=== PATIENT | male | born 1940 | race Caucasian/White ===

== ENCOUNTER 2019-05-17 15:46 | Inpatient (IN) | payer MEDICARE, BC ==
[~2019-05-17] VITALS: Ht 170.2 cm; Wt 76.4 kg
[2019-05-17] MEDS ORDERED: fentaNYL PF VIAL 100 MCG/2 ML VIAL IV ONE ×2 (17:45→19:30)
--- NOTE | 2019-05-17 17:48 | PHYS DOC ---
Past Medical History Past Medical History: Diabetes-Type II, GERD, Hypertension Past Surgical History: Hip Replacement Additional Past Surgical Histo: cardiac stents Alcohol Use: Rarely Drug Use: None Adult General Chief Complaint Chief Complaint: MECHANICAL FALL HPI HPI Patient is a 78 year old Male who presents with was at [employer] today when he slipped on the floor and fell backward. Patient complains of mid to lower back pain at a 10 out of 10. Patient states he also hit the back of his head. Patient is not on blood thinners. Patient denies LOC, vomiting, dizziness, visual changes, headache, numbness or tingling, soa, chest pain. Review of Systems Review of Systems Musculoskeletal: low back pain or joint pain [] Neurologic: hit back of headache, denies focal weakness or sensory changes [] All other systems were reviewed and found to be within normal limits, except as documented in this note. Current Medications Current Medications Current Medications Medications (Trade) Dose Ordered Sig/Alejandra Start Time Stop Time Status Last Admin Dose Admin Fentanyl Citrate (Fentanyl 2ml Vial) 50 mcg 1X ONCE 05/17/19 19:30 05/17/19 19:31 DC 05/17/19 19:28 50 MCG Allergies Allergies Allergies Coded Allergies Type Severity Reaction Last Updated Verified morphine Adverse Reaction Unknown 05/17/19 Yes Physical Exam Physical Exam Constitutional: Well developed, well nourished, no acute distress, non-toxic appearance. [] HENT: Normocephalic, atraumatic, bilateral external ears normal, oropharynx moist, no oral exudates, nose normal. [] Eyes: PERRLA, EOMI, conjunctiva normal, no discharge. [] Neck: Normal range of motion, no tenderness, supple, no stridor. [] Skin: Warm, dry, no erythema, no rash. [] Back: Mid to lower paraspinal tenderness, no CVA tenderness. [] Extremities: No tenderness, no cyanosis, no clubbing, ROM intact, no edema. [] Neurologic: Alert and oriented X 3, normal motor function, normal sensory function, no focal deficits noted. [] Psychologic: Affect normal, judgement normal, mood normal. [] Current Patient Data Vital Signs Vital Signs Date Time Temp Pulse Resp B/P (MAP) Pulse Ox O2 Delivery O2 Flow Rate FiO2 05/17/19 19:28 18 96 Room Air 05/17/19 18:15 64 05/17/19 16:40 98.2 206/94 (131) 98.2 Lab Values Laboratory Tests Test 05/17/19 17:50 05/17/19 19:00 White Blood Count 8.4 x10^3/uL (4.0-11.0) Red Blood Count 4.83 x10^6/uL (4.30-5.70) Hemoglobin 15.4 g/dL (13.0-17.5) Hematocrit 43.4 % (39.0-53.0) Mean Corpuscular Volume 90 fL (79-100) Mean Corpuscular Hemoglobin 32 pg (25-35) Mean Corpuscular Hemoglobin Concent 36 g/dL (31-37) Red Cell Distribution Width 13.2 % (11.5-14.5) Platelet Count 177 x10^3/uL (140-400) Neutrophils (%) (Auto) 80 % (31-73) H Lymphocytes (%) (Auto) 11 % (24-48) L Monocytes (%) (Auto) 7 % (0-9) Eosinophils (%) (Auto) 1 % (0-3) Basophils (%) (Auto) 1 % (0-3) Neutrophils # (Auto) 6.7 x10^3/uL (1.8-7.7) Lymphocytes # (Auto) 0.9 x10^3/uL (1.0-4.8) L Monocytes # (Auto) 0.6 x10^3/uL (0.0-1.1) Eosinophils # (Auto) 0.1 x10^3/uL (0.0-0.7) Basophils # (Auto) 0.0 x10^3/uL (0.0-0.2) Sodium Level 134 mmol/L (136-145) L Potassium Level 5.0 mmol/L (3.5-5.1) Chloride Level 96 mmol/L (98-107) L Carbon Dioxide Level 28 mmol/L (21-32) Anion Gap 10 (6-14) Blood Urea Nitrogen 44 mg/dL (8-26) H Creatinine 1.8 mg/dL (0.7-1.3) H Estimated GFR (Cockcroft-Gault) 36.6 BUN/Creatinine Ratio 24 (6-20) H Glucose Level 354 mg/dL (70-99) H Calcium Level 9.9 mg/dL (8.5-10.1) Total Bilirubin 0.5 mg/dL (0.2-1.0) Aspartate Amino Transferase (AST) 54 U/L (15-37) H Alanine Aminotransferase (ALT) 40 U/L (16-63) Alkaline Phosphatase 124 U/L (46-116) H Troponin I Quantitative 0.113 ng/mL (0.000-0.055) Total Protein 7.4 g/dL (6.4-8.2) Albumin 3.8 g/dL (3.4-5.0) Albumin/Globulin Ratio 1.1 (1.0-1.7) Urine Collection Type Unknown Urine Color Yellow Urine Clarity Clear Urine pH 5.0 Urine Specific Loving 1.020 Urine Protein 100 mg/dL (NEG-TRACE) Urine Glucose (UA) >=1000 mg/dL (NEG) Urine Ketones (Stick) Negative mg/dL (NEG) Urine Blood Negative (NEG) Urine Nitrite Negative (NEG) Urine Bilirubin Negative (NEG) Urine Urobilinogen Dipstick 0.2 mg/dL (0.2 mg/dL) Urine Leukocyte Esterase Negative (NEG) Urine RBC 0 /HPF (0-2) Urine WBC Rare /HPF (0-4) Urine Squamous Epithelial Cells Few /LPF Urine Bacteria 0 /HPF (0-FEW) Laboratory Tests 05/17/19 17:50 Laboratory Tests 05/17/19 17:50 EKG EKG Sinus Rhythm and no STEMI[] Interpretation Time: [address] Ramey Radiology/Procedures Radiology/Procedures [] Impressions: [facility] [address] [place] [address] IMAGING REPORT Signed PATIENT: JUAN J PRATHER ACCOUNT: [id number] : 1940 LOCATION: ER AGE: 78 SEX: M EXAM STATUS: REG ER ORD. PHYSICIAN: NELY VAUGHN APRN REASON: FALL, HEAD AND BACK PAIN, POOR HISTORIAN PROCEDURE: CT HEAD WO CONTRAST EXAM: CT HEAD WITHOUT IV CONTRAST CLINICAL HISTORY: COMPARISON: None. TECHNIQUE: Routine CT of the head without contrast. Soft tissues and bone windows were reviewed. PQRS compliance statement - One or more of the following individualized dose reduction techniques were utilized for this study: 1. Automated exposure control 2. Adjustment of the mA and/or kV according to patient size 3. Use of iterative reconstruction technique FINDINGS: There is no evidence of hemorrhage, mass or extra-axial fluid collection. Periventricular and deep white matter hypoattenuation likely changes of chronic small vessel disease. There is no mass effect or shift of the intracranial structures. The ventricles, basilar There is prominence of the ventricles and sulci bilaterally consistent with generalized atrophy. and cortical sulci are normal in size and configuration for the patients stated age. Bilateral chronic appearing cerebellar infarcts. Changes of right mastoidectomy with temporal auditory devices seen. There is normal aeration of the visualized paranasal sinuses and mastoid air cells. The visualized portions of the orbits are normal. IMPRESSION: 1. No evidence for acute intracranial process. 2. Chronic appearing bilateral cerebellar infarcts. 3. Changes of generalized cerebral atrophy. 4. White matter hypoattenuation likely that of chronic small vessel disease. Exam: CT thoracic spine CLINICAL HISTORY: FALL, HEAD AND BACK PAIN, POOR HISTORIAN COMPARISON: None available. TECHNIQUE: Helical CT of the thoracic spine was performed and axial, coronal and sagittal reformatted images were generated. PQRS compliance statement - One or more of the following individualized dose reduction techniques were utilized for this study: 1. Automated exposure control 2. Adjustment of the mA and/or kV according to patient size 3. Use of iterative reconstruction technique FINDINGS: There is a a transverse fracture through the T12 vertebral body without significant height loss. Fracture plane extends into the T11-12 disc space. Although the fracture extends into the posterior endplate there is no significant osseous retropulsion. The posterior elements are not involved. 4 mm lung nodule in the right lower lobe (series 3 image 56) aortic calcifications are seen. No evidence for high-grade central canal stenosis. No spondylolisthesis. IMPRESSION: 1. Transverse fracture through the T12 vertebral body without significant height loss. EXAM: CT lumbar spine without IV contrast CLINICAL HISTORY:FALL, HEAD AND BACK PAIN, COMPARISON: None available. TECHNIQUE: Helical CT was performed through the lumbar spine. Axial, coronal and sagittal reformatted images were generated. PQRS compliance statement - One or more of the following individualized dose reduction techniques were utilized for this study: 1. Automated exposure control 2. Adjustment of the mA and/or kV according to patient size 3. Use of iterative reconstruction technique FINDINGS: Lumbar vertebral heights are preserved. Severe L5-S1 disc height loss. No evidence for lumbar fracture. T12-L1: No significant central canal stenosis or neural foraminal narrowing. L1-2: No significant central canal stenosis or neural foraminal narrowing. L2-3: Generalized disc bulge results in mild flattening of the central canal without significant neural foraminal narrowing. L3-4: Generalized disc bulge with ligamentum flavum hypertrophy and facet degenerative changes results in mild central canal stenosis and mild bilateral neural foraminal narrowing. L4-5: Generalized disc bulge with ligament flavum hypertrophy and facet degenerative changes results in moderate to severe central canal stenosis and mild left and moderate right neural foraminal narrowing. L5-S1: Generalized disc bulge results in mild central canal stenosis without significant neural foraminal narrowing. Vascular calcifications are seen. IMPRESSION: 1. Multilevel spondylosis as above 2. Negative acute lumbar fracture or subluxation. 3. T12 vertebral body fracture as above. Electronically signed by: Maurizio Vidal MD (05/17/2019 6:38 PM) [facility] DICTATED and SIGNED BY: MAURIZIO VIDAL MD DATE: 05/17/19 183 Course & Med Decision Making Course & Med Decision Making Patient is a 78 year old Male who presents with was at [facility] today when he slipped on the floor and fell backward. Patient complains of mid to lower back pain at a 10 out of 10. Patient states he also hit the back of his head. Patient is not on blood thinners. Patient denies LOC, vomiting, dizziness, visual changes, headache, numbness or tingling, soa, chest pain, weaknesses. There is no tenderness to the patients head, bumps, bruising, laceration, abrasion, redness. With palpation to the patients back there is no focal bony spinal tenderness, bruising, deformity. Patient has right and left paraspinal mid to lower back pain especially with movement. Patient is able to move in bed without complication. Patient walked into the hospital and stood up at bedside to use the urinal. Patient has control over his bowel and bladder. Skin is pink warm and dry. PERRLA. Patient denies any joint or extremity pain. Patient, his family are very poor historians. He did not have a list of medications. Patient's troponin is elevated at 0.113, BUN 44, creatinine 1.8. When I went back into speak to the family and patient about this the son said "oh yeah he did have a heart attack in the past". The son did state that his mother and the patient just moved here from [facility]. The son then stated that his sister would no more information than he would and called the sister. The sister then emailed the son a list of medications and stated that the dad did have a kidney internal list in [place] but does not know anything further than that. Family does not think he is on dialysis. Patient is on Levemir, Lantus, NovoLog, Pioglitazone, metformin, amlodipine, carvedilol, lisinopril, fenofibrate, omeprazole, furosemide, gabapentin, memantine. EKG shows sinus rhythm and no STEMI and was read by Dr. Ramey. Patient be admitted for elevated troponin level and will consult cardiology and nephrology. I did discuss this patient with Dr Ramey. CT's show: 1. Transverse fracture through the T12 vertebral body without significant height loss. 1. Multilevel spondylosis as above 2. Negative acute lumbar fracture or subluxation. 3. T12 vertebral body fracture as above. 1. No evidence for acute intracranial process. 2. Chronic appearing bilateral cerebellar infarcts. 3. Changes of generalized cerebral atrophy. 4. White matter hypoattenuation likely that of chronic small vessel disease. I have spoken to Dr Espitia nurse practitioner Emily. She and Dr Espitia looked at the CT. They state that the patient will need a MRI tomorrow and they will order a back brace for the patient tonight and the patient must remain on bedrest. Patient admitted by Dr Solis. Shawnee Disclaimer Shawnee Disclaimer This electronic medical record was generated, in whole or in part, using a voice recognition dictation system. The HEART Score for CP Pts HEART Score for Chest Pain: HEART Score for Chest Pain Response (Comments) Value History Slighlty/Non-Suspicious 0 Age > 65 2 Risk Factors 1 or 2 Risk Factors 1 Troponin >1-<3x Normal Limit 1 Total 4 Risk Factors: Risk Factors: DM, Current or recent (<one month) smoker, HTN, HLP, family history of CAD, obesity. Risk Scores: Score 0 - 3: 2.5% MACE over next 6 weeks - Discharge Home Score 4 - 6: 20.3% MACE over next 6 weeks - Admit for Clinical Observation Score 7 - 10: 72.7% MACE over next 6 weeks - Early Invasive Strategies Departure Departure Impression: Primary Impression: T12 vertebral fracture Additional Impression: Elevated troponin Disposition: ADMITTED INPATIENT Admitting Physician: HIMS Condition: STABLE Referrals: NO PCP (PCP) Problem Qualifiers Primary Impression: T12 vertebral fracture Encounter type: initial encounter Fracture type: closed Fracture morphology: other fracture Qualified Codes: S22.088A - Other fracture of t11-T12 vertebra, initial encounter for closed fracture NELY VAUGHN APRN May 17, 2019 17:48
[2019-05-17 17:58] LABS: BASO % 1 % (0-3); EOS # 0.1 x10^3/uL (0.0-0.7); EOS % 1 % (0-3); HEMATOCRIT 43.4 % (39.0-53.0); HEMOGLOBIN 15.4 g/dL (13.0-17.5); LYMPH # 0.9 x10^3/uL (1.0-4.8); LYMPH % 11 % (24-48); MEAN CORPUSCULAR HEMOGLOBIN 32 pg (25-35); MEAN CORPUSCULAR HGB CONC 36 g/dL (31-37); MEAN CORPUSCULAR VOLUME 90 fL (79-100); MONO # 0.6 x10^3/uL (0.0-1.1); MONO % 7 % (0-9); NEUT # 6.7 x10^3/uL (1.8-7.7); NEUT % 80 % (31-73); PLATELET COUNT 177 x10^3/uL (140-400); RED BLOOD COUNT 4.83 x10^6/uL (4.30-5.70); RED CELL DISTRIBUTION WIDTH 13.2 % (11.5-14.5); WHITE BLOOD COUNT 8.4 x10^3/uL (4.0-11.0)
[2019-05-17 18:07] LABS: CALCIUM 9.9 mg/dL (8.5-10.1); CREATININE 1.8 mg/dL (0.7-1.3); GFR 36.6
[2019-05-17 18:12] LABS: ALBUMIN 3.8 g/dL (3.4-5.0); ALBUMIN/GLOBULIN RATIO 1.1 (1.0-1.7); TOTAL BILIRUBIN 0.5 mg/dL (0.2-1.0); TOTAL PROTEIN 7.4 g/dL (6.4-8.2)
--- NOTE | 2019-05-17 18:41 | RAD ---
EXAM: CT HEAD WITHOUT IV CONTRAST CLINICAL HISTORY: COMPARISON: None. TECHNIQUE: Routine CT of the head without contrast. Soft tissues and bone windows were reviewed. PQRS compliance statement - One or more of the following individualized dose reduction techniques were utilized for this study: 1. Automated exposure control 2. Adjustment of the mA and/or kV according to patient size 3. Use of iterative reconstruction technique FINDINGS: There is no evidence of hemorrhage, mass or extra-axial fluid collection. Periventricular and deep white matter hypoattenuation likely changes of chronic small vessel disease. There is no mass effect or shift of the intracranial structures. The ventricles, basilar There is prominence of the ventricles and sulci bilaterally consistent with generalized atrophy. and cortical sulci are normal in size and configuration for the patients stated age. Bilateral chronic appearing cerebellar infarcts. Changes of right mastoidectomy with temporal auditory devices seen. There is normal aeration of the visualized paranasal sinuses and mastoid air cells. The visualized portions of the orbits are normal. IMPRESSION: 1. No evidence for acute intracranial process. 2. Chronic appearing bilateral cerebellar infarcts. 3. Changes of generalized cerebral atrophy. 4. White matter hypoattenuation likely that of chronic small vessel disease. Exam: CT thoracic spine CLINICAL HISTORY: FALL, HEAD AND BACK PAIN, POOR HISTORIAN COMPARISON: None available. TECHNIQUE: Helical CT of the thoracic spine was performed and axial, coronal and sagittal reformatted images were generated. PQRS compliance statement - One or more of the following individualized dose reduction techniques were utilized for this study: 1. Automated exposure control 2. Adjustment of the mA and/or kV according to patient size 3. Use of iterative reconstruction technique FINDINGS: There is a a transverse fracture through the T12 vertebral body without significant height loss. Fracture plane extends into the T11-12 disc space. Although the fracture extends into the posterior endplate there is no significant osseous retropulsion. The posterior elements are not involved. 4 mm lung nodule in the right lower lobe (series 3 image 56) aortic calcifications are seen. No evidence for high-grade central canal stenosis. No spondylolisthesis. IMPRESSION: 1. Transverse fracture through the T12 vertebral body without significant height loss. EXAM: CT lumbar spine without IV contrast CLINICAL HISTORY:FALL, HEAD AND BACK PAIN, COMPARISON: None available. TECHNIQUE: Helical CT was performed through the lumbar spine. Axial, coronal and sagittal reformatted images were generated. PQRS compliance statement - One or more of the following individualized dose reduction techniques were utilized for this study: 1. Automated exposure control 2. Adjustment of the mA and/or kV according to patient size 3. Use of iterative reconstruction technique FINDINGS: Lumbar vertebral heights are preserved. Severe L5-S1 disc height loss. No evidence for lumbar fracture. T12-L1: No significant central canal stenosis or neural foraminal narrowing. L1-2: No significant central canal stenosis or neural foraminal narrowing. L2-3: Generalized disc bulge results in mild flattening of the central canal without significant neural foraminal narrowing. L3-4: Generalized disc bulge with ligamentum flavum hypertrophy and facet degenerative changes results in mild central canal stenosis and mild bilateral neural foraminal narrowing. L4-5: Generalized disc bulge with ligament flavum hypertrophy and facet degenerative changes results in moderate to severe central canal stenosis and mild left and moderate right neural foraminal narrowing. L5-S1: Generalized disc bulge results in mild central canal stenosis without significant neural foraminal narrowing. Vascular calcifications are seen. IMPRESSION: 1. Multilevel spondylosis as above 2. Negative acute lumbar fracture or subluxation. 3. T12 vertebral body fracture as above. Electronically signed by: Maurizio Johnson MD (05/17/2019 6:38 PM) [facility]
[2019-05-17 19:17] LABS: BILIRUBIN,URINE NEGATIVE (NEG); CLARITY,URINE CLEAR; COLOR,URINE YELLOW; NITRITE,URINE NEGATIVE (NEG); PROTEIN,URINE 100 mg/dL (NEG-TRACE); UROBILINOGEN,URINE 0.2 mg/dL (0.2 mg/dL)
[2019-05-17 19:24] LABS: BACTERIA,URINE 0 /HPF (0-FEW); RBC,URINE 0 /HPF (0-2); SQUAMOUS EPITHELIAL CELL,UR FEW /LPF; WBC,URINE RARE /HPF (0-4)
--- NOTE | 2019-05-17 19:29 | RAD ---
Chest radiograph 05/17/2019 6:55 PM INDICATION: Fall with elevated troponin COMPARISON: None available TECHNIQUE: Portable upright frontal view of the chest is provided. FINDINGS: The cardiomediastinal silhouette is borderline enlarged. Cardiac monitoring device is present. There are no pleural effusions. There is no pulmonary vascular congestion. There is no pneumothorax. The lungs are clear. Elevation the right hemidiaphragm is nonspecific. Right clavicular hardware is present. IMPRESSION: No acute cardiopulmonary process. There is nonspecific elevation right hemidiaphragm. Electronically signed by: Cathie Hassan MD (05/17/2019 7:26 PM) [facility]
[2019-05-17] MEDS ORDERED: ONDANSETRON PF 4 MG/2 ML VIAL. IV PRN (20:00)
[2019-05-17 21:15] VITALS: BP 175/89
[2019-05-17] MEDS ORDERED: AMLO5TAB10 PO (21:35)
[2019-05-17] MEDS ORDERED: CARV25TA2 PO (21:35)
[2019-05-17] MEDS ORDERED: NIAC500T PO (21:35)
[2019-05-17] MEDS ORDERED: OMEP20CA10 PO (21:35)
[2019-05-17] MEDS ORDERED: OMEG1CAP43 PO (21:35)
[2019-05-17] MEDS ORDERED: FENO145T30 PO (21:35)
[2019-05-17] MEDS ORDERED: INSU100C4 SQ (21:35)
[2019-05-17] MEDS ORDERED: FURO20TA3 PO (21:35)
[2019-05-17] MEDS ORDERED: LISI10TA2 PO (21:35)
[2019-05-17] MEDS ORDERED: CHOL10003 PO (21:35)
[2019-05-17] MEDS ORDERED: MEMA10TA PO (21:35)
[2019-05-17] MEDS ORDERED: MULT1TAB52 PO (21:35)
[2019-05-17] MEDS ORDERED: METF10007 PO (21:35)
[2019-05-17] MEDS ORDERED: INSU100V8 SQ (21:35)
[2019-05-17] MEDS ORDERED: PIOG30TA41 PO (21:35)
[2019-05-17] MEDS ORDERED: ASPI325T8 PO (21:35)
[2019-05-17] MEDS ORDERED: GABA-585 PO (21:35)
[2019-05-17] MEDS ORDERED: IV DEXTROSE 5% 250 ML BAG. IV PRN (21:45)
[2019-05-17] MEDS ORDERED: DEXTROSE 50% 25 GM / 50ML DISP.SYRIN. IV PRN (21:45)
[2019-05-17] MEDS ORDERED: HYDROmorphone 2 MG/ML VIAL IV PRN (21:45)
[2019-05-17] MEDS ORDERED: GABAPENTIN 100 MG CAPSULE. PO SCH (22:00)
[2019-05-17] MEDS ORDERED: MEMANTINE 10 MG TABLET. PO ONE (22:00)
[2019-05-17] MEDS ORDERED: INSULIN LISPRO 300 UNITS/3 ML VIAL. SQ ONE (22:00)
[2019-05-17] MEDS ORDERED: GABAPENTIN 300 MG CAPSULE. PO ONE (22:00)
[2019-05-17] MEDS: GABAPENTIN 300 MG CAPSULE. PO SCH (22:14)
[2019-05-17] MEDS: MEMANTINE 10 MG TABLET. PO SCH (22:17)
[2019-05-17 22:50] VITALS: BP 166/79
[2019-05-18 03:00] VITALS: BP 152/69
[2019-05-18 03:08] LABS: BASO % 0 % (0-3); EOS # 0.1 x10^3/uL (0.0-0.7); EOS % 1 % (0-3); HEMATOCRIT 38.8 % (39.0-53.0); HEMOGLOBIN 13.5 g/dL (13.0-17.5); LYMPH # 1.1 x10^3/uL (1.0-4.8); LYMPH % 15 % (24-48); MEAN CORPUSCULAR HEMOGLOBIN 31 pg (25-35); MEAN CORPUSCULAR HGB CONC 35 g/dL (31-37); MEAN CORPUSCULAR VOLUME 90 fL (79-100); MONO # 0.7 x10^3/uL (0.0-1.1); MONO % 9 % (0-9); NEUT # 5.9 x10^3/uL (1.8-7.7); NEUT % 75 % (31-73); PLATELET COUNT 151 x10^3/uL (140-400); RED BLOOD COUNT 4.31 x10^6/uL (4.30-5.70); RED CELL DISTRIBUTION WIDTH 12.9 % (11.5-14.5); WHITE BLOOD COUNT 7.9 x10^3/uL (4.0-11.0)
[2019-05-18 03:11] LABS: CALCIUM 9.3 mg/dL (8.5-10.1); CREATININE 1.6 mg/dL (0.7-1.3); GFR 41.9; POTASSIUM 4.2 mmol/L (3.5-5.1)
[2019-05-18] MEDS: fentaNYL PF VIAL 100 MCG/2 ML VIAL IV PRN ×2 (06:29→11:10)
[2019-05-18 07:00] VITALS: BP 188/91
[2019-05-18] MEDS ORDERED: INSULIN LISPRO 300 UNITS/3 ML VIAL. SQ SCH (08:00)
--- NOTE | 2019-05-18 08:27 | EKG ---
[facility] [address] [place] [address] Test Date: 2019-05-17 Test Time: 17:36:33 Pat Name: JUAN J PRATHER Department: Room: 208 1 Gender: M Cardio Clinician: LITA : 1940 Requested By: NELY VAUGHN Order Number: [id number] Reading MD: Measurements Intervals [place] Rate: 71 P: 39 VA: 164 QRS: -41 QRSD: 92 T: 71 QT: 382 QTc: 415 Interpretive Statements SINUS RHYTHM ABNORMAL LEFT AXIS DEVIATION R-S TRANSITION ZONE IN V LEADS DISPLACED TO THE LEFT LEFT ANTERIOR FASCICULAR BLOCK CONSIDER LEFT VENTRICULAR HYPERTROPHY QRS(T) CONTOUR ABNORMALITY CONSIDER ANTEROSEPTAL MYOCARDIAL DAMAGE ABNORMAL ECG RI6.01 No previous ECG available for comparison
[2019-05-18] MEDS ORDERED: DEXTROSE 50% 25 GM / 50ML DISP.SYRIN. IV PRN (09:00)
[2019-05-18] MEDS ORDERED: IV DEXTROSE 5% 250 ML BAG. IV PRN (09:00)
--- NOTE | 2019-05-18 09:02 | PDOC1 ---
History and Physical Date of Admission Date of Admission DATE: 05/18/19 TIME: 09:00 Source Source: Chart review, Patient History of Present Illness History of Present Illness Mr. Branch, is a 78 year old Male admitted overnight, yesterday he was at [facility] when he slipped on the floor and fell backward. Patient complained of mid to lower back pain at a 10 out of 10 yesterady, much better today unless he tries to move, then pain worse. . Patient states he also hit the back of his head. Patient is not on blood thin ners. Patient denies LOC, he has no primary care here, he just moved here from [place] to be near his family Social History Smoke: No ALCOHOL: none Drugs: None Current Problem List Problem List Problems Medical Problems: (1) Elevated troponin Status: Acute (2) T12 vertebral fracture Status: Acute Current Medications Current Medications Current Medications Fentanyl Citrate (Fentanyl 2ml Vial) 50 mcg 1X ONCE IV Last administered on 05/17/19at 17:54; Start 05/17/19 at 17:45; Stop 05/17/19 at 17:46; Status DC Fentanyl Citrate (Fentanyl 2ml Vial) 50 mcg 1X ONCE IV Last administered on 05/17/19at 19:28; Start 05/17/19 at 19:30; Stop 05/17/19 at 19:31; Status DC Ondansetron HCl (Zofran) 4 mg PRN Q8HRS PRN IV NAUSEA/VOMITING; Start 05/17/19 at 20:00; Stop 05/18/19 at 19:59 Fentanyl Citrate (Fentanyl 2ml Vial) 50 mcg PRN Q1HR PRN IV PAIN Last administered on 05/18/19at 06:29; Start 05/17/19 at 20:00; Stop 05/18/19 at 19:59 Insulin Human Lispro (HumaLOG) 0-5 UNITS TIDWMEALS SQ ; Start 05/18/19 at 08:00 Dextrose (Dextrose 50%-Water Syringe) 12.5 gm PRN Q15MIN PRN IV SEE COMMENTS; Start 05/17/19 at 21:45 Dextrose 250 ml PRN Q15MIN PRN IV SEE COMMENTS; Start 05/17/19 at 21:45 Hydromorphone HCl (Dilaudid) 1 mg PRN Q4HRS PRN IV PAIN Last administered on 05/18/19at 01:03; Start 05/17/19 at 21:45 Insulin Human Lispro (HumaLOG) 6 units 1X ONCE SQ Last administered on at 22:22; Start 05/17/19 at 22:00; Stop 05/17/19 at 22:01; Status DC Amlodipine Besylate (Norvasc) 5 mg DAILY PO ; Start 05/18/19 at 09:00 Aspirin (Jenifer Aspirin) 325 mg DAILYWBKFT PO ; Start 05/18/19 at 08:00 Vitamin D (Vitamin D3) 1,000 unit DAILY PO ; Start 05/18/19 at 09:00 Furosemide (Lasix) 20 mg DAILY PO ; Start 05/18/19 at 09:00 Gabapentin (Neurontin) 300 mg QHS PO ; Start 05/17/19 at 22:00; Stop 05/17/19 at 21:49; Status DC Lisinopril (Prinivil) 10 mg DAILY PO ; Start 05/18/19 at 09:00 Memantine (Namenda) 10 mg QHS PO Last administered on 05/17/19at 22:22; Start 05/17/19 at 22:00 Niacin (Slo-Niacin) 500 mg DAILY PO ; Start 05/18/19 at 09:00 Carvedilol (Coreg) 25 mg DAILYWBKFT PO ; Start 05/18/19 at 08:00 Insulin Human Lispro (HumaLOG) 10 units DAILY08 SQ ; Start 05/18/19 at 08:00 Metformin HCl (Glucophage) 1,000 mg BIDWMEALS PO ; Start 05/18/19 at 08:00 Multivitamins (Thera M Plus) 1 tab DAILY PO ; Start 05/18/19 at 09:00 Fish Oil (Fish Oil) 3,000 mg DAILY PO ; Start 05/18/19 at 09:00 Pantoprazole Sodium (Protonix) 40 mg DAILYAC PO ; Start 05/18/19 at 07:30 Pioglitazone HCl (Actos) 30 mg DAILY PO ; Start 05/18/19 at 09:00 Gabapentin (Neurontin) 300 mg QHS PO Last administered on 05/17/19at 22:22; Start 05/17/19 at 22:00 Gabapentin (Neurontin) 300 mg 1X ONCE PO ; Start 05/17/19 at 22:00; Stop 05/17/19 at 22:01; Status UNV Memantine (Namenda) 10 mg 1X ONCE PO ; Start 05/17/19 at 22:00; Stop 05/17/19 at 22:01; Status UNV Active Scripts Active Reported Multivitamins (Multivitamin) 1 Each Tablet 1 Tab PO DAILY Aspirin 325 Mg Tablet 1 Tab PO DAILY Niaspan (Niacin) 500 Mg Tab.er.24h 500 Mg PO DAILY Fish Oil 1,400 Mg Softgel ([place]-3/Dha/Epa/Fish Oil) 1 Each Capsule.dr 3 Each PO DAILY Vitamin D3 (Cholecalciferol (Vitamin D3)) 1,000 Unit Tablet 1 Tab PO DAILY Namenda (Memantine Hcl) 10 Mg Tablet 10 Mg PO QHS Gabapentin (Gabapentin) 100 Mg Capsule 300 Mg PO QHS Furosemide 20 Mg Tablet 20 Mg PO DAILY Omeprazole 20 Mg Capsule.dr 20 Mg PO DAILY Fenofibrate (Fenofibrate Nanocrystallized) 145 Mg Tablet 145 Mg PO DAILY Lisinopril 10 Mg Tablet 10 Mg PO DAILY Carvedilol 25 Mg Tablet 25 Mg PO DAILY Amlodipine Besylate 5 Mg Tablet 5 Mg PO DAILY Metformin Hcl 1,000 Mg Tablet 1,000 Mg PO BIDWMEALS Actos (Pioglitazone Hcl) 30 Mg Tablet 30 Mg PO DAILY Novolog (Insulin Aspart) 100 Unit/1 Ml Cartridge 10 Unit SQ DAILY08 Lantus (Insulin Glargine,Hum.rec.anlog) 100 Unit/1 Ml Vial 25-55 Unit SQ DAILY Allergies Allergies: Coded Allergies: morphine (Verified Adverse Reaction, Unknown, 05/17/19) "I get mean" ROS General: No: Chills, Night Sweats, Fatigue, Malaise, Appetite, Other PSYCHOLOGICAL ROS: YES: Sleep disturbances; No: Anxiety, Behavioral Disorder, Concentration difficultie, Decreased libido, Depression, Disorientation, Hallucinations, Hostility, Irritablity, Memory difficulties, Mood Swings, Obsessive thoughts, Other Eyes: No Blurry vision, No Decreased vision, No Double vision, No Dry eyes, No Excessive tearing, No Eye Pain, No Itchy Eyes, No Loss of vision, No Driss tophobia, No Scotomata, No Uses contacts, No Uses glasses, No Other HEENT: YES: Hearing change; No: Heacaches, Visual Changes, Nasal congestion, Nasal discharge, Oral lesions, Sinus pain, Sore Throat, Epistaxis, Sneezing, Snoring, Tinnitus, Vertigo, Vocal changes, Other Cardiovascular: No Chest Pain, No Palpitations, No Orthopnea, No Paroxysmal Noc. Dyspnea, No Edema, No Lt Headedness, No Other Gastrointestinal: No Nausea, No Vomiting, No Abdominal Pain, No Diarrhea, No Constipation, No Melena, No Hematochezia, No Other Genitourinary: No Dysuria, No Frequency, No Incontinence, No Hematuria, No Retention, No Discharge, No Urgency, No Pain, No Flank Pain, No Other, No , No , No , No , No , No , No Musculoskeletal: Yes Joint Stiffness, Yes Joint Swelling, Yes Muscular Weakness , Yes Pain In: (back); No Gait Disturbance, No Joint Pain, No Muscle Pain, No Swelling In:, No Other Neurological: No Behavorial Changes, No Bowel/Bladder ControlChng, No Confusion, No Dizziness, No Gait Disturbance, No Headaches, No Impaired Coord/balance, No Memory Loss, No Numbness/Tingling, No Seizures, No Speech Problems, No Tremors, No Visual Changes, No Weakness, No Other Skin: No Dry Skin, No Eczema, No Hair Changes, No Lumps, No Mole Changes, No Mottling, No Nail Changes, No Pruritus, No Rash, No Skin Lesion Changes, No Other, No Acne Physical Exam General: Alert, Cooperative, No acute distress, Other (a little confused, hard of hearing) HEENT: Atraumatic, PERRLA Extremities: No clubbing, No edema Skin: No breakdown Neuro: Normal speech Psych/Mental Status: Mental status NL, Mood NL Vitals Vitals Vital Signs Date Time Temp Pulse Resp B/P (MAP) Pulse Ox O2 Delivery O2 Flow Rate FiO2 05/18/19 06:29 20 Room Air 05/18/19 03:00 98.1 61 152/69 (96) 95 98.1 Labs Labs Laboratory Tests Test 05/17/19 17:50 05/17/19 19:00 05/17/19 22:30 05/18/19 00:55 White Blood Count 8.4 x10^3/uL (4.0-11.0) 7.9 x10^3/uL (4.0-11.0) Red Blood Count 4.83 x10^6/uL (4.30-5.70) 4.31 x10^6/uL (4.30-5.70) Hemoglobin 15.4 g/dL (13.0-17.5) 13.5 g/dL (13.0-17.5) Hematocrit 43.4 % (39.0-53.0) 38.8 % (39.0-53.0) Mean Corpuscular Volume 90 fL (79-100) 90 fL (79-100) Mean Corpuscular Hemoglobin 32 pg (25-35) 31 pg (25-35) Mean Corpuscular Hemoglobin Concent 36 g/dL (31-37) 35 g/dL (31-37) Red Cell Distribution Width 13.2 % (11.5-14.5) 12.9 % (11.5-14.5) Platelet Count 177 x10^3/uL (140-400) 151 x10^3/uL (140-400) Neutrophils (%) (Auto) 80 % (31-73) 75 % (31-73) Lymphocytes (%) (Auto) 11 % (24-48) 15 % (24-48) Monocytes (%) (Auto) 7 % (0-9) 9 % (0-9) Eosinophils (%) (Auto) 1 % (0-3) 1 % (0-3) Basophils (%) (Auto) 1 % (0-3) 0 % (0-3) Neutrophils # (Auto) 6.7 x10^3/uL (1.8-7.7) 5.9 x10^3/uL (1.8-7.7) Lymphocytes # (Auto) 0.9 x10^3/uL (1.0-4.8) 1.1 x10^3/uL (1.0-4.8) Monocytes # (Auto) 0.6 x10^3/uL (0.0-1.1) 0.7 x10^3/uL (0.0-1.1) Eosinophils # (Auto) 0.1 x10^3/uL (0.0-0.7) 0.1 x10^3/uL (0.0-0.7) Basophils # (Auto) 0.0 x10^3/uL (0.0-0.2) 0.0 x10^3/uL (0.0-0.2) Sodium Level 134 mmol/L (136-145) 137 mmol/L (136-145) Potassium Level 5.0 mmol/L (3.5-5.1) 4.2 mmol/L (3.5-5.1) Chloride Level 96 mmol/L (98-107) 100 mmol/L (98-107) Carbon Dioxide Level 28 mmol/L (21-32) 28 mmol/L (21-32) Anion Gap 10 (6-14) 9 (6-14) Blood Urea Nitrogen 44 mg/dL (8-26) 39 mg/dL (8-26) Creatinine 1.8 mg/dL (0.7-1.3) 1.6 mg/dL (0.7-1.3) Estimated GFR (Cockcroft-Gault) 36.6 41.9 BUN/Creatinine Ratio 24 (6-20) Glucose Level 354 mg/dL (70-99) 265 mg/dL (70-99) Calcium Level 9.9 mg/dL (8.5-10.1) 9.3 mg/dL (8.5-10.1) Total Bilirubin 0.5 mg/dL (0.2-1.0) Aspartate Amino Transf (AST/SGOT) 54 U/L (15-37) Alanine Aminotransferase (ALT/SGPT) 40 U/L (16-63) Alkaline Phosphatase 124 U/L (46-116) Troponin I Quantitative 0.113 ng/mL (0.000-0.055) 0.128 ng/mL (0.000-0.055) 0.147 ng/mL (0.000-0.055) Total Protein 7.4 g/dL (6.4-8.2) Albumin 3.8 g/dL (3.4-5.0) Albumin/Globulin Ratio 1.1 (1.0-1.7) Urine Collection Type Unknown Urine Color Yellow Urine Clarity Clear Urine pH 5.0 Urine Specific [place] 1.020 Urine Protein 100 mg/dL (NEG-TRACE) Urine Glucose (UA) >=1000 mg/dL (NEG) Urine Ketones (Stick) Negative mg/dL (NEG) Urine Blood Negative (NEG) Urine Nitrite Negative (NEG) Urine Bilirubin Negative (NEG) Urine Urobilinogen Dipstick 0.2 mg/dL (0.2 mg/dL) Urine Leukocyte Esterase Negative (NEG) Urine RBC 0 /HPF (0-2) Urine WBC Rare /HPF (0-4) Urine Squamous Epithelial Cells Few /LPF Urine Bacteria 0 /HPF (0-FEW) Test 05/18/19 00:57 05/18/19 07:43 Glucose (Fingerstick) 265 mg/dL (70-99) 310 mg/dL (70-99) Laboratory Tests Test 05/17/19 17:50 05/17/19 19:00 05/17/19 22:30 05/18/19 00:55 White Blood Count 8.4 x10^3/uL (4.0-11.0) 7.9 x10^3/uL (4.0-11.0) Red Blood Count 4.83 x10^6/uL (4.30-5.70) 4.31 x10^6/uL (4.30-5.70) Hemoglobin 15.4 g/dL (13.0-17.5) 13.5 g/dL (13.0-17.5) Hematocrit 43.4 % (39.0-53.0) 38.8 % (39.0-53.0) Mean Corpuscular Volume 90 fL (79-100) 90 fL (79-100) Mean Corpuscular Hemoglobin 32 pg (25-35) 31 pg (25-35) Mean Corpuscular Hemoglobin Concent 36 g/dL (31-37) 35 g/dL (31-37) Red Cell Distribution Width 13.2 % (11.5-14.5) 12.9 % (11.5-14.5) Platelet Count 177 x10^3/uL (140-400) 151 x10^3/uL (140-400) Neutrophils (%) (Auto) 80 % (31-73) 75 % (31-73) Lymphocytes (%) (Auto) 11 % (24-48) 15 % (24-48) Monocytes (%) (Auto) 7 % (0-9) 9 % (0-9) Eosinophils (%) (Auto) 1 % (0-3) 1 % (0-3) Basophils (%) (Auto) 1 % (0-3) 0 % (0-3) Neutrophils # (Auto) 6.7 x10^3/uL (1.8-7.7) 5.9 x10^3/uL (1.8-7.7) Lymphocytes # (Auto) 0.9 x10^3/uL (1.0-4.8) 1.1 x10^3/uL (1.0-4.8) Monocytes # (Auto) 0.6 x10^3/uL (0.0-1.1) 0.7 x10^3/uL (0.0-1.1) Eosinophils # (Auto) 0.1 x10^3/uL (0.0-0.7) 0.1 x10^3/uL (0.0-0.7) Basophils # (Auto) 0.0 x10^3/uL (0.0-0.2) 0.0 x10^3/uL (0.0-0.2) Sodium Level 134 mmol/L (136-145) 137 mmol/L (136-145) Potassium Level 5.0 mmol/L (3.5-5.1) 4.2 mmol/L (3.5-5.1) Chloride Level 96 mmol/L (98-107) 100 mmol/L (98-107) Carbon Dioxide Level 28 mmol/L (21-32) 28 mmol/L (21-32) Anion Gap 10 (6-14) 9 (6-14) Blood Urea Nitrogen 44 mg/dL (8-26) 39 mg/dL (8-26) Creatinine 1.8 mg/dL (0.7-1.3) 1.6 mg/dL (0.7-1.3) Estimated GFR (Cockcroft-Gault) 36.6 41.9 BUN/Creatinine Ratio 24 (6-20) Glucose Level 354 mg/dL (70-99) 265 mg/dL (70-99) Calcium Level 9.9 mg/dL (8.5-10.1) 9.3 mg/dL (8.5-10.1) Total Bilirubin 0.5 mg/dL (0.2-1.0) Aspartate Amino Transf (AST/SGOT) 54 U/L (15-37) Alanine Aminotransferase (ALT/SGPT) 40 U/L (16-63) Alkaline Phosphatase 124 U/L (46-116) Troponin I Quantitative 0.113 ng/mL (0.000-0.055) 0.128 ng/mL (0.000-0.055) 0.147 ng/mL (0.000-0.055) Total Protein 7.4 g/dL (6.4-8.2) Albumin 3.8 g/dL (3.4-5.0) Albumin/Globulin Ratio 1.1 (1.0-1.7) Urine Collection Type Unknown Urine Color Yellow Urine Clarity Clear Urine pH 5.0 Urine Specific [place] 1.020 Urine Protein 100 mg/dL (NEG-TRACE) Urine Glucose (UA) >=1000 mg/dL (NEG) Urine Ketones (Stick) Negative mg/dL (NEG) Urine Blood Negative (NEG) Urine Nitrite Negative (NEG) Urine Bilirubin Negative (NEG) Urine Urobilinogen Dipstick 0.2 mg/dL (0.2 mg/dL) Urine Leukocyte Esterase Negative (NEG) Urine RBC 0 /HPF (0-2) Urine WBC Rare /HPF (0-4) Urine Squamous Epithelial Cells Few /LPF Urine Bacteria 0 /HPF (0-FEW) Test 05/18/19 00:57 05/18/19 07:43 Glucose (Fingerstick) 265 mg/dL (70-99) 310 mg/dL (70-99) VTE Prophylaxis Ordered VTE Prophylaxis Devices: Yes VTE Pharmacological Prophylaxi: No Assessment/Plan Assessment/Plan early dementia T12 fracture back pain consult IR for consider kyphoplasty, Neurosurg consulted by ER, supportive care I called his daughter, TIMOKEEGAN Marcos MD May 18, 2019 09:02
[2019-05-18] MEDS: NIACIN ER 500 MG TABLET.ER PO SCH (09:09)
[2019-05-18] MEDS: CHOLECALCIFEROL (VITAMIN D3) 1,000 UNIT TABLET PO SCH (09:10)
[2019-05-18] MEDS: LISINOPRIL 10 MG TABLET PO SCH (09:10)
[2019-05-18] MEDS: amLODIPine BESYLATE 5 MG TABLET PO SCH (09:10)
[2019-05-18] MEDS: FUROSEMIDE 20 MG TABLET PO SCH (09:11)
[2019-05-18] MEDS: CARVEDILOL 12.5 MG TABLET. PO SCH (09:11)
[2019-05-18] MEDS: MULTIVITAMIN with MINERAL TABLET. PO SCH (09:12)
[2019-05-18] MEDS: metFORMIN 500 MG TABLET PO SCH ×2 (09:12→17:35)
[2019-05-18] MEDS: OMEGA-3 FATTY ACIDS/FISH OIL 1,000 MG CAPSULE. PO SCH (09:12)
[2019-05-18] MEDS: PIOGLITAZONE 15 MG TABLET. PO SCH (09:12)
[2019-05-18] MEDS: ASPIRIN 325 MG TABLET PO SCH (09:13)
[2019-05-18] MEDS: PANTOPRAZOLE 40 MG TABLET.DR. PO SCH (09:13)
[2019-05-18] MEDS: INSULIN LISPRO 300 UNITS/3 ML VIAL. SQ SCH ×4 (09:28→17:00)
[2019-05-18] MEDS: INSULIN GLARGINE SYRINGE. SQ SCH (09:30)
[2019-05-18 11:00] VITALS: BP 97/55
[2019-05-18 11:37] LABS: PROTHROMBIN TIME PATIENT 13.5 SEC (11.7-14.0)
--- NOTE | 2019-05-18 12:45 | PDOC2 ---
NELLIEFAVIOLAANGIE FARRIS 05/18/19 1245: CARDIAC CONSULT DATE OF CONSULT Date of Consult DATE: 05/18/19 TIME: 12:37 REASON FOR CONSULT Reason for Consult: Elevated troponin REFERRING PHYSICIAN Referring Physician: Scarlett Jolly APRN SOURCE Source: Chart review, Patient HISTORY OF PRESENT ILLNESS HISTORY OF PRESENT ILLNESS This is a 78 yo male who presented secondary to fall. Noted with mildly elevated troponin level, which prompted this consult. Patient slipped on a wet floor at [facility]. No LOC. Denies any chest pain, dizziness, diaphoresis, or nausea/vomiting. C/o back pain. Imaging with T12 fracture. Has a h/o CAD s/p PCI/stent to the LAD in 2003 at [facility]. Previously followed with cardiology, but has not been seen since 2013. No recent stress test noted. PAST MEDICAL HISTORY Cardiovascular: CAD (s/p PCI/stent to the LAD in 2003), HTN, Hyperlipidemia CENTRAL NERVOUS SYSTEM: CVA, Dementia GI: GERD Hepatobiliary: Cirrhosis (idiopathic ) Musculoskeletal: Osteoarthritis Endocrine: Diabetes PAST SURGICAL HISTORY Past Surgical History: Tonsillectomy FAMILY HISTORY Family History: Hypertension SOCIAL HISTORY Smoke: No ALCOHOL: none Drugs: None Lives: with Family CURRENT MEDICATIONS CURRENT MEDICATIONS Current Medications Medications (Trade) Dose Ordered Sig/Alejandra Route PRN Reason Start Time Stop Time Status Last Admin Dose Admin Fentanyl Citrate (Fentanyl 2ml Vial) 50 mcg 1X ONCE IV 05/17/19 17:45 05/17/19 17:46 DC 05/17/19 17:54 Fentanyl Citrate (Fentanyl 2ml Vial) 50 mcg 1X ONCE IV 05/17/19 19:30 05/17/19 19:31 DC 05/17/19 19:28 Fentanyl Citrate (Fentanyl 2ml Vial) 50 mcg PRN Q1HR PRN IV PAIN 05/17/19 20:00 05/18/19 19:59 05/18/19 11:11 Hydromorphone HCl (Dilaudid) 1 mg PRN Q4HRS PRN IV PAIN 05/17/19 21:45 05/18/19 01:03 Insulin Human Lispro (HumaLOG) 6 units 1X ONCE SQ 05/17/19 22:00 05/17/19 22:01 DC 05/17/19 22:22 Amlodipine Besylate (Norvasc) 5 mg DAILY PO 05/18/19 09:00 05/18/19 09:30 Aspirin (Jenifer Aspirin) 325 mg DAILYWBKFT PO 05/18/19 08:00 05/18/19 09:31 Vitamin D (Vitamin D3) 1,000 unit DAILY PO 05/18/19 09:00 05/18/19 09:30 Furosemide (Lasix) 20 mg DAILY PO 05/18/19 09:00 05/18/19 09:31 Lisinopril (Prinivil) 10 mg DAILY PO 05/18/19 09:00 05/18/19 09:30 Memantine (Namenda) 10 mg QHS PO 05/17/19 22:00 05/17/19 22:22 Niacin (Slo-Niacin) 500 mg DAILY PO 05/18/19 09:00 05/18/19 09:30 Carvedilol (Coreg) 25 mg DAILYWBKFT PO 05/18/19 08:00 05/18/19 09:31 Insulin Human Lispro (HumaLOG) 10 units DAILY08 SQ 05/18/19 08:00 05/18/19 09:31 Metformin HCl (Glucophage) 1,000 mg BIDWMEALS PO 05/18/19 08:00 05/18/19 09:31 Multivitamins (Thera M Plus) 1 tab DAILY PO 05/18/19 09:00 05/18/19 09:31 Fish Oil (Fish Oil) 3,000 mg DAILY PO 05/18/19 09:00 05/18/19 09:31 Pantoprazole Sodium (Protonix) 40 mg DAILYAC PO 05/18/19 07:30 05/18/19 09:31 Pioglitazone HCl (Actos) 30 mg DAILY PO 05/18/19 09:00 05/18/19 09:31 Gabapentin (Neurontin) 300 mg QHS PO 05/17/19 22:00 05/17/19 22:22 Insulin Glargine (Lantus Syringe) 20 unit DAILY08 SQ 05/18/19 09:30 05/18/19 09:31 ALLERGIES ALLERGIES: Coded Allergies: morphine (Verified Adverse Reaction, Unknown, 05/17/19) "I get mean" ROS Review of System 14 point ROS conducted with pertinent positives noted above in HPI. PHYSICAL EXAM General: Alert, Oriented X3, Cooperative, No acute distress, Other ([place]) HEENT: Atraumatic, Mucous membr. moist/pink Lungs: Clear to auscultation Heart: Regular rate, Normal S1, Normal S2, Other (2/6 systolic murmur ) Abdomen: Soft, No tenderness Extremities: No edema, Normal pulses Skin: No significant lesion Neuro: Normal speech, Sensation intact Psych/Mental Status: Mental status NL, Mood NL MUSCULOSKELETAL: Osteoarthritic changes both hands VITALS/I&O VITALS/I&O: Vital Signs Date Time Temp Pulse Resp B/P (MAP) Pulse Ox O2 Delivery O2 Flow Rate FiO2 05/18/19 11:11 16 05/18/19 09:31 72 177/91 05/18/19 07:00 97.5 93 Room Air 97.5 I & O 05/17/19 05/17/19 05/18/19 15:00 23:00 07:00 Intake Total 400 ml Output Total 300 ml Balance 100 ml LABS Lab: Laboratory Tests Test 05/17/19 17:50 05/17/19 19:00 05/17/19 22:30 05/18/19 00:55 White Blood Count 8.4 x10^3/uL (4.0-11.0) 7.9 x10^3/uL (4.0-11.0) Red Blood Count 4.83 x10^6/uL (4.30-5.70) 4.31 x10^6/uL (4.30-5.70) Hemoglobin 15.4 g/dL (13.0-17.5) 13.5 g/dL (13.0-17.5) Hematocrit 43.4 % (39.0-53.0) 38.8 % (39.0-53.0) L Mean Corpuscular Volume 90 fL (79-100) 90 fL (79-100) Mean Corpuscular Hemoglobin 32 pg (25-35) 31 pg (25-35) Mean Corpuscular Hemoglobin Concent 36 g/dL (31-37) 35 g/dL (31-37) Red Cell Distribution Width 13.2 % (11.5-14.5) 12.9 % (11.5-14.5) Platelet Count 177 x10^3/uL (140-400) 151 x10^3/uL (140-400) Neutrophils (%) (Auto) 80 % (31-73) H 75 % (31-73) H Lymphocytes (%) (Auto) 11 % (24-48) L 15 % (24-48) L Monocytes (%) (Auto) 7 % (0-9) 9 % (0-9) Eosinophils (%) (Auto) 1 % (0-3) 1 % (0-3) Basophils (%) (Auto) 1 % (0-3) 0 % (0-3) Neutrophils # (Auto) 6.7 x10^3/uL (1.8-7.7) 5.9 x10^3/uL (1.8-7.7) Lymphocytes # (Auto) 0.9 x10^3/uL (1.0-4.8) L 1.1 x10^3/uL (1.0-4.8) Monocytes # (Auto) 0.6 x10^3/uL (0.0-1.1) 0.7 x10^3/uL (0.0-1.1) Eosinophils # (Auto) 0.1 x10^3/uL (0.0-0.7) 0.1 x10^3/uL (0.0-0.7) Basophils # (Auto) 0.0 x10^3/uL (0.0-0.2) 0.0 x10^3/uL (0.0-0.2) Sodium Level 134 mmol/L (136-145) L 137 mmol/L (136-145) Potassium Level 5.0 mmol/L (3.5-5.1) 4.2 mmol/L (3.5-5.1) Chloride Level 96 mmol/L (98-107) L 100 mmol/L (98-107) Carbon Dioxide Level 28 mmol/L (21-32) 28 mmol/L (21-32) Anion Gap 10 (6-14) 9 (6-14) Blood Urea Nitrogen 44 mg/dL (8-26) H 39 mg/dL (8-26) H Creatinine 1.8 mg/dL (0.7-1.3) H 1.6 mg/dL (0.7-1.3) H Estimated GFR (Cockcroft-Gault) 36.6 41.9 BUN/Creatinine Ratio 24 (6-20) H Glucose Level 354 mg/dL (70-99) H 265 mg/dL (70-99) H Calcium Level 9.9 mg/dL (8.5-10.1) 9.3 mg/dL (8.5-10.1) Total Bilirubin 0.5 mg/dL (0.2-1.0) Aspartate Amino Transferase (AST) 54 U/L (15-37) H Alanine Aminotransferase (ALT) 40 U/L (16-63) Alkaline Phosphatase 124 U/L (46-116) H Troponin I Quantitative 0.113 ng/mL (0.000-0.055) 0.128 ng/mL (0.000-0.055) 0.147 ng/mL (0.000-0.055) Total Protein 7.4 g/dL (6.4-8.2) Albumin 3.8 g/dL (3.4-5.0) Albumin/Globulin Ratio 1.1 (1.0-1.7) Urine Collection Type Unknown Urine Color Yellow Urine Clarity Clear Urine pH 5.0 Urine Specific [place] 1.020 Urine Protein 100 mg/dL (NEG-TRACE) Urine Glucose (UA) >=1000 mg/dL (NEG) Urine Ketones (Stick) Negative mg/dL (NEG) Urine Blood Negative (NEG) Urine Nitrite Negative (NEG) Urine Bilirubin Negative (NEG) Urine Urobilinogen Dipstick 0.2 mg/dL (0.2 mg/dL) Urine Leukocyte Esterase Negative (NEG) Urine RBC 0 /HPF (0-2) Urine WBC Rare /HPF (0-4) Urine Squamous Epithelial Cells Few /LPF Urine Bacteria 0 /HPF (0-FEW) Test 05/18/19 00:57 05/18/19 07:43 05/18/19 10:48 Glucose (Fingerstick) 265 mg/dL (70-99) H 310 mg/dL (70-99) H Prothrombin Time 13.5 SEC (11.7-14.0) Prothrombin Time INR 1.1 (0.8-1.1) Activated Partial Thromboplast Time 30 SEC (24-38) Laboratory Tests 05/17/19 17:50 05/18/19 00:55 Laboratory Tests 05/17/19 17:50 05/18/19 00:55 ASSESSMENT/PLAN ASSESSMENT/PLAN 1. Traumatic mechanical fall; Imaging notable T12 fracture 2. Mild troponin elevation; highest 0.147. CP free. Most probably type II, demand ischemia in the setting of RI and accelerated hypertension 3. Accelerated hypertension 4. CAD s/p PCI/stent to LAD in 2003 at [facility]. Stable. CP free 5. Hyperlipidemia 6. Diabetes, II; as per PCP 7. VICKY on CKD 8. H/o idiopathic cirrhosis 9. S/p recorder implant; place approximately 3 years ago. Unknown brand Recommendations ASA Echo to assess LV systolic Lipid panel Secondary prevention measures Consider outpatient ischemic evaluation GREGORY CARBAJAL MD 05/18/19 1845: CARDIAC CONSULT ASSESSMENT/PLAN ASSESSMENT/PLAN Patient seen and examined. Agree with above nurse practitioner note. 78-year-old male with a T12 compression fracture. He is hard of hearing. Echo was unremarkable. Etiology of troponin elevation is likely multifactorial due to pain, hypertension and chronic kidney disease At this present time no further cardiac testing necessary. He does not have any cardiac symptoms and he has no acute EKG findings. Supportive care for now. FAVIOLA BALLARD APRN May 18, 2019 12:45 GREGORY CARBAJAL MD May 18, 2019 18:45
--- NOTE | 2019-05-18 14:46 | CARD ---
MR#: [id number] Date of Study: 05/18/2019 Ordering Physician: FAVIOLA BALLARD, Referring Physician: FAVIOLA BALLARD, Tech: Edita Wilkins APPROVED REPORT EXAM: Two-dimensional and M-mode echocardiogram with Doppler and color Doppler. Other Information Quality : AverageHR: 53bpm Technically limited study due to supine patient INDICATION Elevated Troponin RISK FACTORS Hypertension Diabetes 2D DIMENSIONS RVDd3.9 (2.9-3.5cm)Left Atrium(2D)4.7 (1.6-4.0cm) IVSd1.4 (0.7-1.1cm)Aortic Root(2D)2.9 (2.0-3.7cm) LVDd4.9 (3.9-5.9cm)LVOT Diameter2.2 (1.8-2.4cm) PWd1.2 (0.7-1.1cm)LVDs3.3 (2.5-4.0cm) FS (%) 33.1 %SV69.1 ml LVEF(%)61.6 (>50%) Aortic Valve AoV Peak Josse.121.1cm/sAoV VTI25.4cm AO Peak GR.5.9mmHgLVOT VTI 22.24cm AO Mean GR.4mmHg Mitral Valve MV E Hwlwfspa52.6cm/sMV DECEL [id number] MV A Vucnmtzq373.9cm/sE/A Ratio0.5 TDI Lateral E' P. V5.86cm/sMedial E' P. V4.18cm/s E/Lateral E'9.3E/Medial E'13.1 Tricuspid Valve TR P. [id number]/sRAP PLYBHEZX7niMm TR Peak Gr.95urPnQVBA22kiQc Pulmonary Vein S1 Lhwrilvw23.5cm/sS2 Pydbluap82.77cm/s D2 Mmaahnzw49.8cm/sPVa gidjjohg716opvz LEFT VENTRICLE The left ventricle is normal size. There is moderate concentric left ventricular hypertrophy. The lef t ventricular systolic function is normal. The Ejection Fraction is 55-60%. There is normal LV segmen blayne wall motion. Transmitral Doppler flow pattern is Grade I-abnormal relaxation pattern. RIGHT VENTRICLE The right ventricle is normal size. There is normal right ventricular wall thickness. The right ventr icular systolic function is normal. ATRIA The left atrium is borderline dilated. The right atrium size is normal. The interatrial septum is int act with no evidence for an atrial septal defect or patent foramen ovale as noted on 2-D or Doppler i maging. AORTIC VALVE The aortic valve is thickened but opens well. Doppler and Color Flow revealed no significant aortic r egurgitation. There is no significant aortic valvular stenosis. MITRAL VALVE Mitral annular calcification is moderate. The mitral valve is thickened but opens well. There is no e vidence of mitral valve prolapse. There is no mitral valve stenosis. Doppler and Color-flow revealed trace mitral regurgitation. TRICUSPID VALVE The tricuspid valve is normal in structure and function. Doppler and Color Flow revealed trace tricus pid regurgitation with an estimated PAP of 33 mmHg. There is no tricuspid valve stenosis. PULMONIC VALVE The pulmonary valve is normal in structure and function. Doppler and Color Flow revealed no pulmonic valvular regurgitation. GREAT VESSELS The aortic root is normal in size. The IVC is normal in size and collapses >50% with inspiration. PERICARDIAL EFFUSION There is no evidence of significant pericardial effusion. Critical Notification Critical Value: No <Conclusion> The left ventricular systolic function is normal. The Ejection Fraction is 55-60%. There is normal LV segmental wall motion. Transmitral Doppler flow pattern is Grade I-abnormal relaxation pattern. Trace mitral regurgitation. Trace tricuspid regurgitation with an estimated PAP of 33 mmHg. There is no evidence of significant pericardial effusion. Signed by : Kan Alvarez, Electronically Approved : 05/18/2019 14:46:23
[2019-05-18 15:00] VITALS: BP 104/57
[2019-05-18] MEDS: oxyCODONE/APAP 5/325 1 TAB TABLET PO PRN ×2 (15:42→21:25)
--- NOTE | 2019-05-18 16:11 | PDOC ---
Provider Note Provider Note Patient seen and examined s/p fall imaging with T12 fracture unable to have MRI due to cochlear implant TLSO ordered when he receives brace, we will repeat x rays RYAN ORTEGA MD May 18, 2019 16:11
[2019-05-18 20:05] VITALS: BP 119/61
[2019-05-18] MEDS: GABAPENTIN 300 MG CAPSULE. PO SCH (21:24)
[2019-05-18] MEDS: MEMANTINE 10 MG TABLET. PO SCH (21:24)
--- NOTE | 2019-05-18 22:38 | CONS ---
DATE OF CONSULTATION: 05/18/2019 ATTENDING PHYSICIAN: Dr. Orestes Solis. REASON FOR CONSULTATION: The patient was seen at the request of Dr. Ackerman for rehab evaluation. HISTORY OF PRESENT ILLNESS: This is a 78-year-old male admitted last night after he [facility] and fell backwards complains of [id number] back pain and also hit back of the head. He was found with elevated troponin and T12 vertebral body compression fracture and he received thoracolumbar sacral orthosis today and he has been lying down on the bed. He feels like he is lying down long time and after he got the brace, he got up, he feels some better. He denies any significant back pain or any pain radiating to his lower extremities. The patient is known ALLERGIC TO MORPHINE. The patient apparently lives with his and he had a quad cane walker at home. The patient had echocardiogram done today, which failed to reveal any significant abnormalities, except trace tricuspid regurgitation with estimated PAP of 33 mmHg and cardiac ejection fraction of 55%-60%. The patient had markedly decreased acuity of hearing. PHYSICAL EXAMINATION: Today revealed an elderly male. He is alert, oriented to place and person, follows commands appropriately, moves all 4 extremities voluntarily where he had 4+/5 grade muscle strength. Deep tendon reflexes are decreased overall with absent knee and ankle jerks and he had painful range of motion of his extremity joints. The patient had thoracolumbar sacral brace in place. He requires supervision with coming to a standing position from sitting in the chair and once up, he walks with somewhat wide-based gait and his right leg lags behind to some extent. He walked more stable using a roller walker, still with a wide-based gait and still right leg lags behind. ASSESSMENT: An elderly male with recent fall and T12 vertebral body compression fracture. The patient with diabetic peripheral neuropathy. RECOMMENDATIONS: Home with Home Health followup when medically stable. Dr. Ackerman, I appreciate asking me to participate in the care of this interesting patient. I will be glad to see him for followup with you on as-needed basis. JORGE LOPEZ MD DR: RAFI/tita JOB#: [id number] / [id number]
[2019-05-18 23:30] VITALS: BP 146/71
[2019-05-19 03:40] VITALS: BP 118/60
[2019-05-19 07:00] VITALS: BP 129/58
[2019-05-19] MEDS: INSULIN LISPRO 300 UNITS/3 ML VIAL. SQ SCH ×4 (08:00→17:33)
--- NOTE | 2019-05-19 08:11 | PDOC ---
Provider Note Provider Note IR NOTE Consulted for consideration of vertebral augmentation (Kypho/Vertebroplasty). Neurosurgical eval noted. TLSO brace ordered. MRI not possible 2nd to cochlear implant. Could consider procedure if patient fails to respond to conservative treatment, and with neurosurgical clearance. DAKOTA CHANG MD May 19, 2019 08:11
[2019-05-19] MEDS: NIACIN ER 500 MG TABLET.ER PO SCH (08:31)
[2019-05-19] MEDS: metFORMIN 500 MG TABLET PO SCH ×2 (08:31→17:28)
[2019-05-19] MEDS: OMEGA-3 FATTY ACIDS/FISH OIL 1,000 MG CAPSULE. PO SCH (08:31)
[2019-05-19] MEDS: PIOGLITAZONE 15 MG TABLET. PO SCH (08:31)
[2019-05-19] MEDS: PANTOPRAZOLE 40 MG TABLET.DR. PO SCH (08:31)
[2019-05-19] MEDS: MULTIVITAMIN with MINERAL TABLET. PO SCH (08:32)
[2019-05-19] MEDS: CARVEDILOL 12.5 MG TABLET. PO SCH (08:32)
[2019-05-19] MEDS: amLODIPine BESYLATE 5 MG TABLET PO SCH (08:32)
[2019-05-19] MEDS: CHOLECALCIFEROL (VITAMIN D3) 1,000 UNIT TABLET PO SCH (08:32)
[2019-05-19] MEDS: FUROSEMIDE 20 MG TABLET PO SCH (08:33)
[2019-05-19] MEDS: LISINOPRIL 10 MG TABLET PO SCH (08:33)
[2019-05-19] MEDS: ASPIRIN 325 MG TABLET PO SCH (08:33)
[2019-05-19] MEDS: INSULIN GLARGINE SYRINGE. SQ SCH (08:42)
[2019-05-19 11:00] VITALS: BP 103/53
--- NOTE | 2019-05-19 11:24 | PDOC ---
[facility] PROGRESS NOTE Chief Complaint Chief Complaint T12 rib fracture Elevated troponin History of Present Illness History of Present Illness 05/19/19 Pt seen and examined at bedside In no acute distress Hard of hearing Consideration for kyphoplasty Vitals/I&O Vitals/I&O: Vital Signs Date Time Temp Pulse Resp B/P (MAP) Pulse Ox O2 Delivery O2 Flow Rate FiO2 05/19/19 08:43 56 129/58 05/19/19 08:00 Room Air 05/19/19 07:00 98.3 18 90 98.3 I & O 05/18/19 05/18/19 05/19/19 15:00 23:00 07:00 Intake Total 250 ml 300 ml Output Total 960 ml 300 ml Balance -960 ml -50 ml 300 ml Physical Exam Physical Exam: General: Alert, Cooperative, No acute distress, Other (a little confused, hard of hearing) HEENT: Atraumatic, PERRLA Extremities: No clubbing, No edema Skin: No breakdown Neuro: Normal speech Psych/Mental Status: Mental status NL, Mood NL General: Alert, Cooperative, No acute distress, Other (a little confused, hard of hearing) Heart: Regular rate, Normal S1, Normal S2, Other (2/6 systolic murmur ) Abdomen: Soft, No tenderness Extremities: No clubbing, No edema Skin: No breakdown Labs Labs: Laboratory Tests Test 05/18/19 12:41 05/18/19 17:31 05/18/19 21:16 05/19/19 07:54 Glucose (Fingerstick) 236 mg/dL (70-99) 128 mg/dL (70-99) 246 mg/dL (70-99) 246 mg/dL (70-99) Review of Systems Review of Systems: No nausea, no vomiting No headache, no loss of vision No chest pain, no shortness of breath Assessment and Plan Assessmemt and Plan Problems Medical Problems: (1) Diabetic peripheral neuropathy Status: Chronic (2) Elevated troponin Status: Acute (3) T12 vertebral fracture Status: Acute Assessment T12 rib fracture Elevated troponin Plan Cardiac monitoring Labs Serial enzymes/EKGs Full code DVT prophylaxis IR for possible kyphoplasty Comment Review of Relevant I have reviewed the following items berhane (where applicable) has been applied. Medications: Current Medications Medications (Trade) Dose Ordered Sig/Alejandra Route PRN Reason Start Time Stop Time Status Last Admin Dose Admin Oxycodone/ Acetaminophen (Percocet 5/325) 1 tab PRN Q4HRS PRN PO PAIN 05/18/19 11:30 05/18/19 21:25 JAVIER SABILLON III DO May 19, 2019 11:24
--- NOTE | 2019-05-19 12:47 | PDOC ---
PROGRESS NOTES Subjective Subjective He denies any pain. Objective Objective Vital Signs Date Time Temp Pulse Resp B/P (MAP) Pulse Ox O2 Delivery O2 Flow Rate FiO2 05/19/19 08:43 56 129/58 05/19/19 08:00 Room Air 05/19/19 07:00 98.3 18 90 98.3 Intake and Output 05/19/19 07:00 Intake Total 550 ml Output Total 1260 ml Balance -710 ml Intake Oral 550 ml Output Urine Total 1260 ml Physical Exam Physical Exam He is alert,sitting in bedside chair with TLSO brace at slightly higher level on his back and he was apparently sleepy this AM as he did not sleep well last night and he continues with ataxia from peripheral neuropathy. I spoke to physical therapy,nursing and his and nursing home social worker. Assessment Assessment Problems Medical Problems: (1) Diabetic peripheral neuropathy Status: Chronic (2) Elevated troponin Status: Acute (3) T12 vertebral fracture Status: Acute Plan Plan of Care Agree with plans for SNF transfer when medically stable. His wants him to have walker with seat rest but it might make him more unsafe as it moves faster with 4 wheels. Comment Review of Relevant I have reviewed the following items berhane (where applicable) has been applied. Labs Laboratory Tests Test 05/17/19 17:50 05/17/19 19:00 05/17/19 22:30 05/18/19 00:55 White Blood Count 8.4 x10^3/uL (4.0-11.0) 7.9 x10^3/uL (4.0-11.0) Red Blood Count 4.83 x10^6/uL (4.30-5.70) 4.31 x10^6/uL (4.30-5.70) Hemoglobin 15.4 g/dL (13.0-17.5) 13.5 g/dL (13.0-17.5) Hematocrit 43.4 % (39.0-53.0) 38.8 % (39.0-53.0) Mean Corpuscular Volume 90 fL (79-100) 90 fL (79-100) Mean Corpuscular Hemoglobin 32 pg (25-35) 31 pg (25-35) Mean Corpuscular Hemoglobin Concent 36 g/dL (31-37) 35 g/dL (31-37) Red Cell Distribution Width 13.2 % (11.5-14.5) 12.9 % (11.5-14.5) Platelet Count 177 x10^3/uL (140-400) 151 x10^3/uL (140-400) Neutrophils (%) (Auto) 80 % (31-73) 75 % (31-73) Lymphocytes (%) (Auto) 11 % (24-48) 15 % (24-48) Monocytes (%) (Auto) 7 % (0-9) 9 % (0-9) Eosinophils (%) (Auto) 1 % (0-3) 1 % (0-3) Basophils (%) (Auto) 1 % (0-3) 0 % (0-3) Neutrophils # (Auto) 6.7 x10^3/uL (1.8-7.7) 5.9 x10^3/uL (1.8-7.7) Lymphocytes # (Auto) 0.9 x10^3/uL (1.0-4.8) 1.1 x10^3/uL (1.0-4.8) Monocytes # (Auto) 0.6 x10^3/uL (0.0-1.1) 0.7 x10^3/uL (0.0-1.1) Eosinophils # (Auto) 0.1 x10^3/uL (0.0-0.7) 0.1 x10^3/uL (0.0-0.7) Basophils # (Auto) 0.0 x10^3/uL (0.0-0.2) 0.0 x10^3/uL (0.0-0.2) Sodium Level 134 mmol/L (136-145) 137 mmol/L (136-145) Potassium Level 5.0 mmol/L (3.5-5.1) 4.2 mmol/L (3.5-5.1) Chloride Level 96 mmol/L (98-107) 100 mmol/L (98-107) Carbon Dioxide Level 28 mmol/L (21-32) 28 mmol/L (21-32) Anion Gap 10 (6-14) 9 (6-14) Blood Urea Nitrogen 44 mg/dL (8-26) 39 mg/dL (8-26) Creatinine 1.8 mg/dL (0.7-1.3) 1.6 mg/dL (0.7-1.3) Estimated GFR (Cockcroft-Gault) 36.6 41.9 BUN/Creatinine Ratio 24 (6-20) Glucose Level 354 mg/dL (70-99) 265 mg/dL (70-99) Calcium Level 9.9 mg/dL (8.5-10.1) 9.3 mg/dL (8.5-10.1) Total Bilirubin 0.5 mg/dL (0.2-1.0) Aspartate Amino Transf (AST/SGOT) 54 U/L (15-37) Alanine Aminotransferase (ALT/SGPT) 40 U/L (16-63) Alkaline Phosphatase 124 U/L (46-116) Troponin I Quantitative 0.113 ng/mL (0.000-0.055) 0.128 ng/mL (0.000-0.055) 0.147 ng/mL (0.000-0.055) Total Protein 7.4 g/dL (6.4-8.2) Albumin 3.8 g/dL (3.4-5.0) Albumin/Globulin Ratio 1.1 (1.0-1.7) Urine Collection Type Unknown Urine Color Yellow Urine Clarity Clear Urine pH 5.0 Urine Specific [place] 1.020 Urine Protein 100 mg/dL (NEG-TRACE) Urine Glucose (UA) >=1000 mg/dL (NEG) Urine Ketones (Stick) Negative mg/dL (NEG) Urine Blood Negative (NEG) Urine Nitrite Negative (NEG) Urine Bilirubin Negative (NEG) Urine Urobilinogen Dipstick 0.2 mg/dL (0.2 mg/dL) Urine Leukocyte Esterase Negative (NEG) Urine RBC 0 /HPF (0-2) Urine WBC Rare /HPF (0-4) Urine Squamous Epithelial Cells Few /LPF Urine Bacteria 0 /HPF (0-FEW) Triglycerides Level 353 mg/dL (0-150) Cholesterol Level 182 mg/dL (0-200) LDL Cholesterol, Calculated 85 mg/dL (0-100) VLDL Cholesterol, Calculated 71 mg/dL (0-40) Non-HDL Cholesterol Calculated 156 mg/dL (0-129) HDL Cholesterol 26 mg/dL (40-60) Cholesterol/HDL Ratio 7.0 Test 05/18/19 00:57 05/18/19 07:43 05/18/19 10:48 05/18/19 12:41 Glucose (Fingerstick) 265 mg/dL (70-99) 310 mg/dL (70-99) 236 mg/dL (70-99) Prothrombin Time 13.5 SEC (11.7-14.0) Prothromb Time International Ratio 1.1 (0.8-1.1) Activated Partial Thromboplast Time 30 SEC (24-38) Test 05/18/19 17:31 05/18/19 21:16 05/19/19 07:54 05/19/19 12:05 Glucose (Fingerstick) 128 mg/dL (70-99) 246 mg/dL (70-99) 246 mg/dL (70-99) 282 mg/dL (70-99) Laboratory Tests Test 05/18/19 12:41 05/18/19 17:31 05/18/19 21:16 05/19/19 07:54 Glucose (Fingerstick) 236 mg/dL (70-99) 128 mg/dL (70-99) 246 mg/dL (70-99) 246 mg/dL (70-99) Test 05/19/19 12:05 Glucose (Fingerstick) 282 mg/dL (70-99) Medications Current Medications Fentanyl Citrate (Fentanyl 2ml Vial) 50 mcg 1X ONCE IV Last administered on 05/17/19at 17:54; Start 05/17/19 at 17:45; Stop 05/17/19 at 17:46; Status DC Fentanyl Citrate (Fentanyl 2ml Vial) 50 mcg 1X ONCE IV Last administered on 05/17/19at 19:28; Start 05/17/19 at 19:30; Stop 05/17/19 at 19:31; Status DC Ondansetron HCl (Zofran) 4 mg PRN Q8HRS PRN IV NAUSEA/VOMITING Last administered on 05/18/19at 17:39; Start 05/17/19 at 20:00; Stop 05/18/19 at 19:59 ; Status DC Fentanyl Citrate (Fentanyl 2ml Vial) 50 mcg PRN Q1HR PRN IV PAIN Last administered on 05/18/19at 11:11; Start 05/17/19 at 20:00; Stop 05/18/19 at 19:59; Status DC Insulin Human Lispro (HumaLOG) 0-5 UNITS TIDWMEALS SQ ; Start 05/18/19 at 08:00; Stop 05/18/19 at 09:03; Status DC Dextrose (Dextrose 50%-Water Syringe) 12.5 gm PRN Q15MIN PRN IV SEE COMMENTS; Start 05/17/19 at 21:45; Stop 05/18/19 at 09:03; Status DC Dextrose 250 ml PRN Q15MIN PRN IV SEE COMMENTS; Start 05/17/19 at 21:45; Stop 05/18/19 at 09:03; Status DC Hydromorphone HCl (Dilaudid) 1 mg PRN Q4HRS PRN IV PAIN Last administered on 05/18/19at 01:03; Start 05/17/19 at 21:45 Insulin Human Lispro (HumaLOG) 6 units 1X ONCE SQ Last administered on 05/17/19at 22:22; Start 05/17/19 at 22:00; Stop 05/17/19 at 22:01; Status DC Amlodipine Besylate (Norvasc) 5 mg DAILY PO Last administered on 05/19/19 08:43; Start 05/18/19 at 09:00 Aspirin (Jenifer Aspirin) 325 mg DAILYWBKFT PO Last administered on 05/19/19 08:43; Start 05/18/19 at 08:00 Vitamin D (Vitamin D3) 1,000 unit DAILY PO Last administered on 05/19/19 08:43; Start 05/18/19 at 09:00 Furosemide (Lasix) 20 mg DAILY PO Last administered on 05/19/19at 08:43; Start 05/18/19 at 09:00 Gabapentin (Neurontin) 300 mg QHS PO ; Start 05/17/19 at 22:00; Stop 05/17/19 at 21:49; Status DC Lisinopril (Prinivil) 10 mg DAILY PO Last administered on 05/19/19 08:43; Start 05/18/19 at 09:00 Memantine (Namenda) 10 mg QHS PO Last administered on 05/18/19at 21:25; Start 05/17/19 at 22:00 Niacin (Slo-Niacin) 500 mg DAILY PO Last administered on 05/19/19 08:43; Start 05/18/19 at 09:00 Carvedilol (Coreg) 25 mg DAILYWBKFT PO Last administered on 05/19/19 08:43; Start 05/18/19 at 08:00 Insulin Human Lispro (HumaLOG) 10 units DAILY08 SQ Last administered on 05/19/19 08:43; Start 05/18/19 at 08:00 Metformin HCl (Glucophage) 1,000 mg BIDWMEALS PO Last administered on 05/19/19 08:43; Start 05/18/19 at 08:00 Multivitamins (Thera M Plus) 1 tab DAILY PO Last administered on 05/19/19 08:43; Start 05/18/19 at 09:00 Fish Oil (Fish Oil) 3,000 mg DAILY PO Last administered on 05/19/19 08:43; Start 05/18/19 at 09:00 Pantoprazole Sodium (Protonix) 40 mg DAILYAC PO Last administered on 05/19/19 08:43; Start 05/18/19 at 07:30 Pioglitazone HCl (Actos) 30 mg DAILY PO Last administered on 05/19/19 08:43; Start 05/18/19 at 09:00 Gabapentin (Neurontin) 300 mg QHS PO Last administered on 05/18/19 21:25; Start 05/17/19 at 22:00 Gabapentin (Neurontin) 300 mg 1X ONCE PO ; Start 05/17/19 at 22:00; Stop 05/17/19 at 22:01; Status UNV Memantine (Namenda) 10 mg 1X ONCE PO ; Start 05/17/19 at 22:00; Stop 05/17/19 at 22:01; Status UNV Insulin Human Lispro (HumaLOG) 0-9 UNITS TIDWMEALS SQ Last administered on 05/18/19at 12:50; Start 05/18/19 at 09:30 Dextrose (Dextrose 50%-Water Syringe) 12.5 gm PRN Q15MIN PRN IV SEE COMMENTS; Start 05/18/19 at 09:00 Dextrose 250 ml PRN Q15MIN PRN IV SEE COMMENTS; Start 05/18/19 at 09:00 Insulin Glargine (Lantus Syringe) 20 unit DAILY08 SQ Last administered on 05/19/19 08:43; Start 05/18/19 at 09:30 Oxycodone/ Acetaminophen (Percocet 5/325) 1 tab PRN Q4HRS PRN PO PAIN Last administered on 05/18/19at 21:25; Start 05/18/19 at 11:30 Active Scripts Active Reported Multivitamins (Multivitamin) 1 Each Tablet 1 Tab PO DAILY Aspirin 325 Mg Tablet 1 Tab PO DAILY Niaspan (Niacin) 500 Mg Tab.er.24h 500 Mg PO DAILY Fish Oil 1,400 Mg Softgel ([place]-3/Dha/Epa/Fish Oil) 1 Each Capsule.dr 3 Each PO DAILY Vitamin D3 (Cholecalciferol (Vitamin D3)) 1,000 Unit Tablet 1 Tab PO DAILY Namenda (Memantine Hcl) 10 Mg Tablet 10 Mg PO QHS Gabapentin (Gabapentin) 100 Mg Capsule 300 Mg PO QHS Furosemide 20 Mg Tablet 20 Mg PO DAILY Omeprazole 20 Mg Capsule.dr 20 Mg PO DAILY Fenofibrate (Fenofibrate Nanocrystallized) 145 Mg Tablet 145 Mg PO DAILY Lisinopril 10 Mg Tablet 10 Mg PO DAILY Carvedilol 25 Mg Tablet 25 Mg PO DAILY Amlodipine Besylate 5 Mg Tablet 5 Mg PO DAILY Metformin Hcl 1,000 Mg Tablet 1,000 Mg PO BIDWMEALS Actos (Pioglitazone Hcl) 30 Mg Tablet 30 Mg PO DAILY Novolog (Insulin Aspart) 100 Unit/1 Ml Cartridge 10 Unit SQ DAILY08 Lantus (Insulin Glargine,Hum.rec.anlog) 100 Unit/1 Ml Vial 25-55 Unit SQ DAILY Vitals/I & O Vital Sign - Last 24 Hours 05/18/19 05/18/19 05/18/19 05/18/19 15:00 19:00 20:00 20:05 Temp 97.6 97.7 97.6 97.7 Pulse 55 56 55 Resp 20 18 B/P (MAP) 104/57 (73) 119/61 (80) Pulse Ox 94 95 O2 Delivery Room Air Room Air Room Air 05/18/19 05/18/19 05/19/19 05/19/19 21:25 23:30 01:00 03:40 Temp 98.1 97.8 98.1 97.8 Pulse 60 56 Resp 20 18 20 18 B/P (MAP) 146/71 (96) 118/60 (79) Pulse Ox 95 93 93 94 O2 Delivery Room Air Room Air Room Air Room Air 05/19/19 05/19/19 05/19/19 05/19/19 07:00 08:00 08:43 08:43 Temp 98.3 98.3 Pulse 56 56 56 Resp 18 B/P (MAP) 129/58 (81) 129/58 129/58 Pulse Ox 90 O2 Delivery Room Air Room Air 05/19/19 08:43 Pulse 56 B/P (MAP) 129/58 Intake and Output 05/18/19 05/18/19 05/19/19 15:00 23:00 07:00 Intake Total 250 ml 300 ml Output Total 960 ml 300 ml Balance -960 ml -50 ml 300 ml JORGE LOPEZ MD May 19, 2019 12:46
[2019-05-19 15:00] VITALS: BP 108/46
--- NOTE | 2019-05-19 16:55 | RAD ---
EXAM: Thoracolumbar spine, 2 views. HISTORY: T12 fracture. COMPARISON: CT dated 05/17/2019. FINDINGS: 2 views of the thoracolumbar spine are obtained. There is a mild T12 compression fracture with less than 25% loss of central vertebral body height. This is not appreciably changed compared to the prior CT. No additional fracture is seen. There is no listhesis. There is an incidental chronic event monitor overlying the left thorax. IMPRESSION: Mild T12 compression fracture, not appreciably changed compared to the recent CT. Electronically signed by: Mag Shin MD (05/19/2019 4:52 PM) [facility]
[2019-05-19 19:35] VITALS: BP 124/65
[2019-05-19] MEDS: GABAPENTIN 300 MG CAPSULE. PO SCH (21:19)
[2019-05-19] MEDS: MEMANTINE 10 MG TABLET. PO SCH (21:20)
[2019-05-19 23:30] VITALS: BP 123/68
[2019-05-20 03:05] VITALS: BP 136/76
[2019-05-20 05:28] LABS: CREATININE 1.8 mg/dL (0.7-1.3); GFR 36.6
[2019-05-20] MEDS: PANTOPRAZOLE 40 MG TABLET.DR. PO SCH (06:30)
[2019-05-20 07:00] VITALS: BP 131/70
[2019-05-20] MEDS ORDERED: GABAPENTIN 300 MG CAPSULE. PO ONE (07:15)
[2019-05-20] MEDS: amLODIPine BESYLATE 5 MG TABLET PO SCH (09:03)
[2019-05-20] MEDS: MULTIVITAMIN with MINERAL TABLET. PO SCH (09:03)
[2019-05-20] MEDS: OMEGA-3 FATTY ACIDS/FISH OIL 1,000 MG CAPSULE. PO SCH (09:03)
[2019-05-20] MEDS: CARVEDILOL 12.5 MG TABLET. PO SCH (09:04)
[2019-05-20] MEDS: FUROSEMIDE 20 MG TABLET PO SCH (09:04)
[2019-05-20] MEDS: NIACIN ER 500 MG TABLET.ER PO SCH (09:04)
[2019-05-20] MEDS: CHOLECALCIFEROL (VITAMIN D3) 1,000 UNIT TABLET PO SCH (09:04)
[2019-05-20] MEDS: LISINOPRIL 10 MG TABLET PO SCH (09:05)
[2019-05-20] MEDS: ASPIRIN 325 MG TABLET PO SCH (09:05)
[2019-05-20] MEDS: metFORMIN 500 MG TABLET PO SCH (09:07)
[2019-05-20] MEDS: INSULIN LISPRO 300 UNITS/3 ML VIAL. SQ SCH ×3 (09:27→12:21)
[2019-05-20] MEDS: INSULIN GLARGINE SYRINGE. SQ SCH (09:29)
[2019-05-20] MEDS: PIOGLITAZONE 15 MG TABLET. PO SCH (09:53)
--- NOTE | 2019-05-20 09:53 | PDOC ---
PROGRESS NOTES Subjective Subjective He c/o pain in his feet and minimal pain in his back. Objective Objective Vital Signs Date Time Temp Pulse Resp B/P (MAP) Pulse Ox O2 Delivery O2 Flow Rate FiO2 05/20/19 09:30 60 131/70 05/20/19 07:00 98.2 18 93 Room Air 98.2 Intake and Output 05/20/19 07:00 Intake Total 1050 ml Balance 1050 ml Intake Oral 1050 ml Physical Exam Physical Exam He is alert and comfortable and no pain on ROM of his ankles and no tenderness to palpation in his feet. Assessment Assessment Problems Medical Problems: (1) Diabetic peripheral neuropathy Status: Chronic (2) Elevated troponin Status: Acute (3) T12 vertebral fracture Status: Acute Plan Plan of Care To SNF when arrangements are completed. Comment Review of Relevant I have reviewed the following items berhane (where applicable) has been applied. Labs Laboratory Tests Test 05/18/19 10:48 05/18/19 12:41 05/18/19 17:31 05/18/19 21:16 Prothrombin Time 13.5 SEC (11.7-14.0) Prothromb Time International Ratio 1.1 (0.8-1.1) Activated Partial Thromboplast Time 30 SEC (24-38) Glucose (Fingerstick) 236 mg/dL (70-99) 128 mg/dL (70-99) 246 mg/dL (70-99) Test 05/19/19 07:54 05/19/19 12:05 05/19/19 16:54 05/19/19 21:23 Glucose (Fingerstick) 246 mg/dL (70-99) 282 mg/dL (70-99) 189 mg/dL (70-99) 90 mg/dL (70-99) Test 05/20/19 04:25 05/20/19 07:30 Creatinine 1.8 mg/dL (0.7-1.3) Estimated GFR (Cockcroft-Gault) 36.6 Glucose (Fingerstick) 165 mg/dL (70-99) Laboratory Tests Test 05/19/19 12:05 05/19/19 16:54 05/19/19 21:23 05/20/19 04:25 Glucose (Fingerstick) 282 mg/dL (70-99) 189 mg/dL (70-99) 90 mg/dL (70-99) Creatinine 1.8 mg/dL (0.7-1.3) Estimated GFR (Cockcroft-Gault) 36.6 Test 05/20/19 07:30 Glucose (Fingerstick) 165 mg/dL (70-99) Medications Current Medications Fentanyl Citrate (Fentanyl 2ml Vial) 50 mcg 1X ONCE IV Last administered on 05/17/19at 17:54; Start 05/17/19 at 17:45; Stop 05/17/19 at 17:46; Status DC Fentanyl Citrate (Fentanyl 2ml Vial) 50 mcg 1X ONCE IV Last administered on 05/17/19at 19:28; Start 05/17/19 at 19:30; Stop 05/17/19 at 19:31; Status DC Ondansetron HCl (Zofran) 4 mg PRN Q8HRS PRN IV NAUSEA/VOMITING Last administered on 05/18/19at 17:39; Start 05/17/19 at 20:00; Stop 05/18/19 at 19:59; Status DC Fentanyl Citrate (Fentanyl 2ml Vial) 50 mcg PRN Q1HR PRN IV PAIN Last administered on 05/18/19at 11:11; Start 05/17/19 at 20:00; Stop 05/18/19 at 19:59; Status DC Insulin Human Lispro (HumaLOG) 0-5 UNITS TIDWMEALS SQ ; Start 05/18/19 at 08:00; Stop 05/18/19 at 09:03; Status DC Dextrose (Dextrose 50%-Water Syringe) 12.5 gm PRN Q15MIN PRN IV SEE COMMENTS; Start 05/17/19 at 21:45; Stop 05/18/19 at 09:03; Status DC Dextrose 250 ml PRN Q15MIN PRN IV SEE COMMENTS; Start 05/17/19 at 21:45; Stop 05/18/19 at 09:03; Status DC Hydromorphone HCl (Dilaudid) 1 mg PRN Q4HRS PRN IV PAIN Last administered on 05/18/19at 01:03; Start 05/17/19 at 21:45 Insulin Human Lispro (HumaLOG) 6 units 1X ONCE SQ Last administered on 05/17/19at 22:22; Start 05/17/19 at 22:00; Stop 05/17/19 at 22:01; Status DC Amlodipine Besylate (Norvasc) 5 mg DAILY PO Last administered on 05/20/19 09:30; Start 05/18/19 at 09:00 Aspirin (Jenifer Aspirin) 325 mg DAILYWBKFT PO Last administered on 05/20/19 09: 30; Start 05/18/19 at 08:00 Vitamin D (Vitamin D3) 1,000 unit DAILY PO Last administered on 05/20/19 09:30; Start 05/18/19 at 09:00 Furosemide (Lasix) 20 mg DAILY PO Last administered on 05/20/19 09:30; Start 05/18/19 at 09:00 Gabapentin (Neurontin) 300 mg QHS PO ; Start 05/17/19 at 22:00; Stop 05/17/19 at 21:49; Status DC Lisinopril (Prinivil) 10 mg DAILY PO Last administered on 05/20/19 09:30; Start 05/18/19 at 09:00 Memantine (Namenda) 10 mg QHS PO Last administered on 05/19/19 21:20; Start 05/17/19 at 22:00 Niacin (Slo-Niacin) 500 mg DAILY PO Last administered on 05/20/19 09:30; Start 05/18/19 at 09:00 Carvedilol (Coreg) 25 mg DAILYWBKFT PO Last administered on 05/20/19 09:30; Start 05/18/19 at 08:00 Insulin Human Lispro (HumaLOG) 10 units DAILY08 SQ Last administered on 05/20/19 09:30; Start 05/18/19 at 08:00 Metformin HCl (Glucophage) 1,000 mg BIDWMEALS PO Last administered on 05/20/19 09:30; Start 05/18/19 at 08:00 Multivitamins (Thera M Plus) 1 tab DAILY PO Last administered on 05/20/19 09:30; Start 05/18/19 at 09:00 Fish Oil (Fish Oil) 3,000 mg DAILY PO Last administered on 05/20/19 09:30; Start 05/18/19 at 09:00 Pantoprazole Sodium (Protonix) 40 mg DAILYAC PO Last administered on 05/20/19 06:33; Start 05/18/19 at 07:30 Pioglitazone HCl (Actos) 30 mg DAILY PO Last administered on 05/19/19at 08:43; Start 05/18/19 at 09:00 Gabapentin (Neurontin) 300 mg QHS PO Last administered on 05/19/19at 21:20; Start 05/17/19 at 22:00 Gabapentin (Neurontin) 300 mg 1X ONCE PO ; Start 05/17/19 at 22:00; Stop 05/17/19 at 22:01; Status UNV Memantine (Namenda) 10 mg 1X ONCE PO ; Start 05/17/19 at 22:00; Stop 05/17/19 at 22:01; Status UNV Insulin Human Lispro (HumaLOG) 0-9 UNITS TIDWMEALS SQ Last administered on 05/20/19at 09:30; Start 05/18/19 at 09:30 Dextrose (Dextrose 50%-Water Syringe) 12.5 gm PRN Q15MIN PRN IV SEE COMMENTS; Start 05/18/19 at 09:00 Dextrose 250 ml PRN Q15MIN PRN IV SEE COMMENTS; Start 05/18/19 at 09:00 Insulin Glargine (Lantus Syringe) 20 unit DAILY08 SQ Last administered on 05/20/19at 09:30; Start 05/18/19 at 09:30 Oxycodone/ Acetaminophen (Percocet 5/325) 1 tab PRN Q4HRS PRN PO PAIN Last administered on 05/18/19at 21:25; Start 05/18/19 at 11:30 Gabapentin (Neurontin) 300 mg 1X ONCE PO Last administered on 05/20/19at 07:22; Start 05/20/19 at 07:15; Stop 05/20/19 at 07:16; Status DC Active Scripts Active Reported Multivitamins (Multivitamin) 1 Each Tablet 1 Tab PO DAILY Aspirin 325 Mg Tablet 1 Tab PO DAILY Niaspan (Niacin) 500 Mg Tab.er.24h 500 Mg PO DAILY Fish Oil 1,400 Mg Softgel ([place]-3/Dha/Epa/Fish Oil) 1 Each Capsule. 3 Each PO DAILY Vitamin D3 (Cholecalciferol (Vitamin D3)) 1,000 Unit Tablet 1 Tab PO DAILY Namenda (Memantine Hcl) 10 Mg Tablet 10 Mg PO QHS Gabapentin (Gabapentin) 100 Mg Capsule 300 Mg PO QHS Furosemide 20 Mg Tablet 20 Mg PO DAILY Omeprazole 20 Mg Capsule.dr 20 Mg PO DAILY Fenofibrate (Fenofibrate Nanocrystallized) 145 Mg Tablet 145 Mg PO DAILY Lisinopril 10 Mg Tablet 10 Mg PO DAILY Carvedilol 25 Mg Tablet 25 Mg PO DAILY Amlodipine Besylate 5 Mg Tablet 5 Mg PO DAILY Metformin Hcl 1,000 Mg Tablet 1,000 Mg PO BIDWMEALS Actos (Pioglitazone Hcl) 30 Mg Tablet 30 Mg PO DAILY Novolog (Insulin Aspart) 100 Unit/1 Ml Cartridge 10 Unit SQ DAILY08 Lantus (Insulin Glargine,Hum.rec.anlog) 100 Unit/1 Ml Vial 25-55 Unit SQ DAILY Vitals/I & O Vital Sign - Last 24 Hours 05/19/19 05/19/19 05/19/19 05/19/19 11:00 15:00 19:35 20:00 Temp 98.3 97.7 97.9 98.3 97.7 97.9 Pulse 54 58 55 Resp 18 20 B/P (MAP) 103/53 (70) 108/46 (66) 124/65 (84) Pulse Ox 94 93 94 O2 Delivery Room Air Room Air Room Air Room Air 05/19/19 05/20/19 05/20/19 05/20/19 23:30 03:05 07:00 09:30 Temp 97.6 97.7 98.2 97.6 97.7 98.2 Pulse 58 65 60 60 Resp 18 18 18 B/P (MAP) 123/68 (86) 136/76 (96) 131/70 (90) 131/70 Pulse Ox 96 94 93 O2 Delivery Room Air Room Air Room Air 05/20/19 05/20/19 09:30 09:30 Pulse 60 60 B/P (MAP) 131/70 131/70 Intake and Output 05/19/19 05/19/19 05/20/19 15:00 23:00 07:00 Intake Total 250 ml 200 ml 600 ml Balance 250 ml 200 ml 600 ml JORGE LOPEZ MD May 20, 2019 09:53
[2019-05-20 11:00] VITALS: BP 107/60
--- NOTE | 2019-05-20 13:19 | PDOC ---
[employer] PROGRESS NOTE Chief Complaint Chief Complaint T12 rib fracture Elevated troponin History of Present Illness History of Present Illness 05/20/19 Pt seen and examined at bedside Woke up with sternal rub Hard of hearing Was asked about kyphoplasty procedure; confused DW RN about potential procedure; surgery not recommended Dr. Mitchell (PMR) recommends home health when patient is stable 05/19/19 Pt seen and examined at bedside In no acute distress Hard of hearing Consideration for kyphoplasty Vitals/I&O Vitals/I&O: Vital Signs Date Time Temp Pulse Resp B/P (MAP) Pulse Ox O2 Delivery O2 Flow Rate FiO2 05/20/19 11:00 98.3 52 18 107/60 (76) 94 Room Air 98.3 I & O 05/19/19 05/19/19 05/20/19 15:00 23:00 07:00 Intake Total 250 ml 200 ml 600 ml Balance 250 ml 200 ml 600 ml Physical Exam Physical Exam: General: Alert, Cooperative, No acute distress, Other (a little confused, hard of hearing) HEENT: Atraumatic, PERRLA Extremities: No clubbing, No edema Skin: No breakdown Neuro: Normal speech Psych/Mental Status: Mental status NL, Mood NL General: Alert, Cooperative, No acute distress, Other (a little confused, hard of hearing) Heart: Regular rate, Normal S1, Normal S2, Other (2/6 systolic murmur ) Abdomen: Soft, No tenderness Extremities: No clubbing, No edema Skin: No breakdown Labs Labs: Laboratory Tests Test 05/19/19 16:54 05/19/19 21:23 05/20/19 04:25 05/20/19 07:30 Glucose (Fingerstick) 189 mg/dL (70-99) 90 mg/dL (70-99) 165 mg/dL (70-99) Creatinine 1.8 mg/dL (0.7-1.3) Estimated GFR (Cockcroft-Gault) 36.6 Test 05/20/19 11:56 Glucose (Fingerstick) 232 mg/dL (70-99) Review of Systems Review of Systems: No nausea, no vomiting No headache, no loss of vision Assessment and Plan Assessmemt and Plan Problems Medical Problems: (1) Diabetic peripheral neuropathy Status: Chronic (2) Elevated troponin Status: Acute (3) T12 vertebral fracture Status: Acute Assessment T12 fracture Elevated troponin Plan DVT prophylaxis Full code PT/OT Labs Recommend SNF when pt is stable Comment Review of Relevant I have reviewed the following items berhane (where applicable) has been applied. Medications: Current Medications Medications (Trade) Dose Ordered Sig/Alejandra Route PRN Reason Start Time Stop Time Status Last Admin Dose Admin Gabapentin (Neurontin) 300 mg 1X ONCE PO 05/20/19 07:15 05/20/19 07:16 DC 05/20/19 07:22 JAVIER SABILLON III DO May 20, 2019 13:19
--- NOTE | 2019-05-20 13:23 | SNU/HH DC ---
DISCHARGE ORDERS DISCHARGE INFORMATION: FINAL DIAGNOSIS Problems Medical Problems: (1) Diabetic peripheral neuropathy Status: Chronic (2) Elevated troponin Status: Acute (3) T12 vertebral fracture Status: Acute CONDITION ON DISCHARGE: Stable CODE STATUS: Code Status: Full CARE HOME: SNF STAY <30 DAYS: Yes HOSPICE: HOSPICE: No HOSPICE EVAL & TREAT: No LTAC: ADMIT TO LTAC: No POST DISCHARGE ORDERS: ACTIVITY ORDERS: Resume previous activity DIET AFTER DISCHARGE: Cardiac TREATMENT/EQUIPMENT ORDERS: Physical Therapy For: Evalulation/Treatment Occupational Therapy For: Evaluation/Treatment Speech Language Pathology For: Evaluation/Treatment DISCHARGE MEDICATIONS: Home Meds Reported Medications Multivitamin (MULTIVITAMINS) 1 Each Tablet, 1 TAB PO DAILY for VITAMIN SUPPORT, #90 TAB 3 Refills 05/17/19 Aspirin (ASPIRIN) 325 Mg Tablet, 1 TAB PO DAILY for HEART, #90 TAB 3 Refills 05/17/19 Niacin (NIASPAN) 500 Mg Tab.er.24h, 500 MG PO DAILY for HLD, TAB.SR 05/17/19 [place]-3/Dha/Epa/Fish Oil (FISH OIL 1,400 MG SOFTGEL) 1 Each Capsule.dr, 3 EACH PO DAILY for OMEGA 3 SUPPORT, CAP 05/17/19 Cholecalciferol (Vitamin D3) (VITAMIN D3) 1,000 Unit Tablet, 1 TAB PO DAILY for VITAMIN SUPPORT, #90 TAB 3 Refills 05/17/19 Memantine Hcl (NAMENDA) 10 Mg Tablet, 10 MG PO QHS for MEMORY, TAB 05/17/19 Gabapentin (GABAPENTIN ) 100 Mg Capsule, 300 MG PO QHS for NEUROGENIC PAIN, CAP 05/17/19 Furosemide (FUROSEMIDE) 20 Mg Tablet, 20 MG PO DAILY for FLUID RETENTION, TAB 05/17/19 Omeprazole (OMEPRAZOLE) 20 Mg Capsule.dr, 20 MG PO DAILY for GERD, CAP 05/17/19 Fenofibrate Nanocrystallized (FENOFIBRATE) 145 Mg Tablet, 145 MG PO DAILY for HLD, TAB 05/17/19 Lisinopril (LISINOPRIL) 10 Mg Tablet, 10 MG PO DAILY for FOR HYPERTENSION, #30 TAB 0 Refills 05/17/19 Carvedilol (CARVEDILOL) 25 Mg Tablet, 25 MG PO DAILY for CARDIAC, TAB 05/17/19 Amlodipine Besylate (AMLODIPINE BESYLATE) 5 Mg Tablet, 5 MG PO DAILY for HTN, TAB 05/17/19 Metformin Hcl (METFORMIN HCL) 1,000 Mg Tablet, 1000 MG PO BIDWMEALS for DM II, TAB 05/17/19 Pioglitazone Hcl (ACTOS) 30 Mg Tablet, 30 MG PO DAILY for DM II, TAB 05/17/19 Insulin Aspart (NOVOLOG) 100 Unit/1 Ml Cartridge, 10 UNIT SQ DAILY08 for blood sugar, EACH 05/17/19 Insulin Glargine,Hum.rec.anlog (LANTUS) 100 Unit/1 Ml Vial, 25-55 UNIT SQ DAILY for blood sugar, VIAL 05/17/19 JAVIER SABILLON III DO May 20, 2019 13:23
[2019-05-20 15:00] VITALS: BP 84/54
--- NOTE | 2019-05-22 18:35 | DS ---
DATE OF DISCHARGE: 05/20/2019 ADMISSION DIAGNOSIS: T12 compression fracture. DISCHARGE DIAGNOSIS: Resolving T12 compression fracture. HOSPITAL COURSE: The patient is a pleasant 78-year-old male, who presented with back pain and had a T12 compression fracture. He was admitted. We consulted Neurosurgery in and Dr. Mitchell. Over the next few days, the patient did better, but was still having pain. We considered him for kyphoplasty, but as I recall, he did not get the actual procedure. Basically, we discharged to skilled. DISPOSITION: Skilled. ACTIVITY: As tolerated. MEDICATIONS: Please see the MRAD. TOTAL TIME: 32 minutes. JAVIER SABILLON DO DR: PEDRITO/tita JOB#: [id number] / [id number]
== END 2019-05-20 16:00 | DRG 552 ==
LOC: ER 15:46 → 2 NORTH 19:50
PROVIDERS: ADMIT Family Medicine; ATTEND Family Medicine
PROC: 2W35X3Z Immobilization of Back using Brace (ICD-10-PCS; principal; 2019-05-19)
DX: S22.089A Unspecified fracture of T11-T12 vertebra, initial encounter for closed fracture (principal); N17.9 Acute kidney failure, unspecified; K21.9 Gastro-esophageal reflux disease without esophagitis; Z96.649 Presence of unspecified artificial hip joint; E78.5 Hyperlipidemia, unspecified; I25.10 Atherosclerotic heart disease of native coronary artery without angina pectoris; K74.60 Unspecified cirrhosis of liver; M47.9 Spondylosis, unspecified; N18.9 Chronic kidney disease, unspecified; I12.9 Hypertensive chronic kidney disease with stage 1 through stage 4 chronic kidney disease, or unspecified chronic kidney disease; E11.42 Type 2 diabetes mellitus with diabetic polyneuropathy; M19.90 Unspecified osteoarthritis, unspecified site; R79.89 Other specified abnormal findings of blood chemistry; E11.51 Type 2 diabetes mellitus with diabetic peripheral angiopathy without gangrene; E11.22 Type 2 diabetes mellitus with diabetic chronic kidney disease; H91.90 Unspecified hearing loss, unspecified ear; Z96.21 Cochlear implant status; F03.90 Unspecified dementia, unspecified severity, without behavioral disturbance, psychotic disturbance, mood disturbance, and anxiety; W01.0XXA Fall on same level from slipping, tripping and stumbling without subsequent striking against object, initial encounter; Y93.89 Activity, other specified; Y92.89 Other specified places as the place of occurrence of the external cause; Y99.8 Other external cause status; Z88.5 Allergy status to narcotic agent; Z95.5 Presence of coronary angioplasty implant and graft; Z82.49 Family history of ischemic heart disease and other diseases of the circulatory system; Z86.73 Personal history of transient ischemic attack (TIA), and cerebral infarction without residual deficits
CPT/HCPCS: 36415; 70450; 71045; 72080; 72128; 72131; 80048; 80053; 80061; 81001; 82565; 82962; 84484; 85025; 85610; 85730; 93005; 93306; 96374; J1170; J1815; J2405; J3010; 97110; 97116; 97530; 97535; 99285-25; G0378